=== PATIENT | male | born 1960 | race Caucasian/White ===

== ENCOUNTER 2024-12-18 05:39 | Inpatient (IN) | payer SELFPAY ==
--- OUTSIDE RECORDS SUMMARY | 2024-12-18 05:43 | XMS REPORT | Continuity of Care Document ---
Author Name Unknown Address [address] [facility] [address] [place] [address] [facility] Address [address] [facility] [address] [place] [address] Care Team Providers Care Speech Therapy Director Name Role Phone Sommer Whyte Primary Care Physician Medications Ordered Medication Name Filled Medication Name Start Date Stop Date Current Medication? Ordering Clinician Indication Dosage Frequency Signature (SIG) Comments Components Source albuterol sulfate HFA 90 mcg/actuati on aerosol inhaler 12-05 00:00: 00 Yes 12mcg/a ctuatio n Miguel Horta oseltamivir 75 mg capsule 12-05 00:00: 00 Yes 1mg Miguel Horta promethazin e-DM 6.25 mg-15 mg/5 mL oral syrup 12-05 00:00: 00 Yes 5mg/5 mL Miguel Horta carvedilol 25 mg tablet 2023-11 00:00: 00 Yes 1mg Miguel Horta lovastatin 20 mg tablet 2023-11 00:00: 00 Yes mg Miguel Horta amlodipine 10 mg tablet 2023-11 00:00: 00 Yes 1mg Miguel Horta lisinopril 40 mg tablet 2023-11 00:00: 00 Yes 1mg Miguel Horta lisinopril 40 mg tablet 07-19 00:00: 00 Yes 1mg Miguel Horta lovastatin 20 mg tablet 07-10 00:00: 00 Yes mg Miguel Horta lovastatin 20 mg tablet - 00:00: 00 Yes 1mg Miguel Horta lisinopril 40 mg tablet 04-11 00:00: 00 Yes 1mg Miguel Horta lovastatin 20 mg tablet -08 00:00: 00 Yes 1mg Miguel Horta lisinopril 40 mg tablet -08 00:00: 00 Yes 1mg Miguel Horta amlodipine 10 mg tablet -08 00:00: 00 Yes 1mg Miguel Horta carvedilol 25 mg tablet - 00:00: 00 Yes 1mg Miguel Horta amlodipine 10 mg tablet - 00:00: 00 Yes 1mg Miguel Horta carvedilol 25 mg tablet 02-06 00:00: 00 Yes 1mg Miguel Horta amlodipine 10 mg tablet 01-12 00:00: 00 Yes mg Miguel Horta carvedilol 25 mg tablet 01-11 00:00: 00 Yes mg Miguel Horta TAKE 1 TABLET BY MOUTH TWICE DAILY. 08 00:00: 00 Yes 25 Miguel Horta TAKE 1 TABLET BY MOUTH DAILY 08 00:00: 00 Yes 40 Miguel Horta TAKE 1 TABLET BY MOUTH DAILY 08 00:00: 00 Yes 20 Miguel Horta TAKE 1 TABLET BY MOUTH DAILY -08 00:00: 00 Yes 10 Miguel Horta TAKE 1 TABLET BY MOUTH DAILY 0 16 00:00: 00 03-21 00:00 :00 No 40 Miguel Horta TAKE 1 TABLET BY MOUTH TWICE DAILY. 16 00:00: 00 03-21 00:00 :00 No 25 Miguel Horta TAKE 1 TABLET BY MOUTH DAILY 0 16 00:00: 00 03-21 00:00 :00 No 20 Miguel Jennifer Horta TAKE 1 TABLET BY MOUTH DAILY 0 -16 00:00: 00 03-21 00:00 :00 No 10 Miguel Horta TAKE 1 TABLET BY MOUTH DAILY 0 - 00:00: 00 03-21 00:00 :00 No 10 Miguel Horta TAKE 1 TABLET BY MOUTH TWICE DAILY. 05-17 00:00: 00 03-21 00:00 :00 No 25 Miguel F Mychal TAKE 1 TABLET BY MOUTH DAILY 0 7-11 00:00: 00 03-21 00:00 :00 No 40 Miguel F Mychal TAKE 1 TABLET BY MOUTH DAILY 630 00:00: 00 03-21 00:00 :00 No 20 Miguel F Mychal TAKE 1 TABLET BY MOUTH DAILY 04-21 00:00: 00 03-21 00:00 :00 No 40 Miguel F Mychal TAKE 1 TABLET TWICE DAILY. 04-21 00:00: 00 03-21 00:00 :00 No 25 Miguel F Mychal TAKE 1 TABLET BY MOUTH DAILY 16 00:00: 00 03-21 00:00 :00 No 20 Miguel F Mychal TAKE 1 TABLET TWICE DAILY. 03-22 00:00: 00 03-21 00:00 :00 No 25 Miguel F Mychal TAKE 1 TABLET BY MOUTH DAILY 16 00:00: 00 03-21 00:00 :00 No 10 Miguel F Mychal TAKE 1 TABLET BY MOUTH DAILY 17 00:00: 00 03-21 00:00 :00 No 10 Miguel F Mychal TAKE 1 TABLET BY MOUTH DAILY 17 00:00: 00 03-21 00:00 :00 No 20 Miguel F Mychal TAKE 1 TABLET TWICE DAILY. 02-16 00:00: 00 03-21 00:00 :00 No 25 Miguel F Mychal Dose Unknown 11-19 00:00: 00 Yes Miguel F Mychal TAKE 1 TABLET BY MOUTH DAILY 11-19 00:00: 00 03-21 00:00 :00 No 10 Miguel F Mychal TAKE 1 TABLET TWICE DAILY. 11-19 00:00: 00 03-21 00:00 :00 No 25 Miguel F Mychal TAKE 1 TABLET BY MOUTH DAILY 11-19 00:00: 00 03-21 00:00 :00 No 20 Miguel F Mychal Dose Unknown 2021-11 0-17 00:00: 00 Yes Miguel Horta Dose Unknown 0 8-16 00:00: 00 Yes Miguel Horta carvedilol 25 mg tablet 0 8-11 00:00: 00 Yes 1mg Miguel Horta TAKE 1 TABLET BY MOUTH DAILY 0 8-11 00:00: 00 Yes 40 Miguel Horta TAKE 1 TABLET BY MOUTH DAILY 0 8-09 00:00: 00 Yes 40 Miguel Horta TAKE 1 TABLET BY MOUTH DAILY 0 8- 00:00: 00 Yes 10 Miguel Horta TAKE 1 TABLET BY MOUTH DAILY 0 8- 00:00: 00 Yes 20 Miguel Horta Dose Unknown 6-20 00:00: 00 Yes Miguel Horta lovastatin 20 mg tablet 0 6-20 00:00: 00 Yes 1mg Miguel Horta amlodipine 10 mg tablet 0 620 00:00: 00 Yes 1mg Miguel Horta carvedilol 25 mg tablet 0 6-20 00:00: 00 Yes 1mg Miguel Horta lisinopril 40 mg tablet 0 607 00:00: 00 Yes 1mg Miguel Horta amlodipine 10 mg tablet 0 6-07 00:00: 00 Yes 1mg Miguel Horta carvedilol 12.5 mg tablet 0 04-13 00:00: 00 Yes 1mg Miguel Horta lovastatin 20 mg tablet 0 6 00:00: 00 Yes 1mg Miguel Horta Dose Unknown 2020-11 2- 00:00: 00 Yes Miguel Horta amlodipine 10 mg tablet 2020-11 2- 00:00: 00 Yes 1mg Miguel Horta carvedilol 12.5 mg tablet 2020-11 00:00: 00 Yes 1mg Miguel Horta lovastatin 20 mg tablet 2020-11 00:00: 00 Yes 1mg Miguel Horta amlodipine 10 mg tablet 6- 00:00: 00 Yes 1mg Miguel Horta lisinopril 40 mg tablet 6- 00:00: 00 Yes 1mg Miguel Horta carvedilol 12.5 mg tablet 0 6-10 00:00: 00 Yes 1mg Miguel Horta lovastatin 20 mg tablet 0 6-10 00:00: 00 Yes 1mg Miguel Horta amlodipine 10 mg tablet 0 3-12 00:00: 00 Yes 1mg Miguel Horta Dose Unknown 0 3-12 00:00: 00 Yes Miguel Horta carvedilol 12.5 mg tablet 0 3-12 00:00: 00 Yes 1mg Miguel Horta lovastatin 20 mg tablet 0 3-12 00:00: 00 Yes 1mg Miguel Horta amlodipine 10 mg tablet 1 2-11 00:00: 00 Yes 1mg Miguel Horta lisinopril 40 mg tablet 1 2-11 00:00: 00 Yes 1mg Miguel Horta carvedilol 12.5 mg tablet 1 2-11 00:00: 00 Yes 1mg Miguel Horta lovastatin 20 mg tablet 1 2-11 00:00: 00 Yes 1mg Miguel Horta lisinopril 40 mg tablet 2019-0 9-14 00:00: 00 Yes 1mg Miguel Horta amlodipine 10 mg tablet 2019-0 9-14 00:00: 00 Yes 1mg Miguel Horta carvedilol 12.5 mg tablet 2019-0 9-14 00:00: 00 Yes 1mg Miguel Horta lovastatin 20 mg tablet 2019-0 9-14 00:00: 00 Yes 1mg Miguel Horta amlodipine 10 mg tablet 2019-0 6-12 00:00: 00 Yes 1mg Miguel Horta lisinopril 40 mg tablet 2019-0 6-12 00:00: 00 Yes 1mg Miguel Horta carvedilol 12.5 mg tablet 2019-0 6-12 00:00: 00 Yes 1mg Miguel Horta lovastatin 20 mg tablet 2019-0 6-12 00:00: 00 Yes 1mg Miguel Horta lisinopril 40 mg tablet 2019-0 3-18 00:00: 00 Yes 1mg Miguel Horta amlodipine 10 mg tablet 2019-0 3-18 00:00: 00 Yes 1mg Miguel Horta carvedilol 12.5 mg tablet 2019-0 3-18 00:00: 00 Yes 1mg Miguel Horta lovastatin 20 mg tablet 0 01-22 00:00: 00 Yes 1mg Miguel Horta lisinopril 40 mg tablet 01-06 00:00: 00 Yes 1mg Miguel Horta amlodipine 5 mg tablet 01-06 00:00: 00 Yes 1mg Miguel Horta carvedilol 12.5 mg tablet 01-06 00:00: 00 Yes 1mg Miguel Horta lovastatin 20 mg tablet 01-06 00:00: 00 Yes 1mg Miguel Horta lisinopril 40 mg tablet 2018-11 00:00: 00 Yes 1mg Miguel Horta amlodipine 5 mg tablet 2018-11 00:00: 00 Yes 1mg Miguel Horta carvedilol 12.5 mg tablet 2018-11 00:00: 00 Yes 1mg Miguel Horta lovastatin 20 mg tablet 2018-11 00:00: 00 Yes 1mg Miguel Horta amlodipine 5 mg tablet 07-13 00:00: 00 Yes 1mg Miguel Horta lisinopril 40 mg tablet 07-13 00:00: 00 Yes 1mg Miguel Horta carvedilol 12.5 mg tablet 07-13 00:00: 00 Yes 1mg Miguel Horta lovastatin 20 mg tablet 07-13 00:00: 00 Yes 1mg Miguel Horta amlodipine 5 mg tablet 07-12 00:00: 00 Yes 1mg Miguel Horta lisinopril 40 mg tablet 07-12 00:00: 00 Yes 1mg Miguel Horta carvedilol 12.5 mg tablet 07-12 00:00: 00 Yes 1mg Miguel Horta lovastatin 20 mg tablet 07-12 00:00: 00 Yes 1mg Miguel Horta lisinopril 40 mg tablet 06-11 00:00: 00 Yes 1mg Miguel Horta amlodipine 5 mg tablet 06-11 00:00: 00 Yes 1mg Miguel Horta carvedilol 12.5 mg tablet 06-11 00:00: 00 Yes 1mg Miguel Horta lovastatin 20 mg tablet 06-11 00:00: 00 Yes 1mg Miguel Horta lisinopril 40 mg tablet 05-28 00:00: 00 Yes 1mg Miguel Horta amlodipine 5 mg tablet 05-28 00:00: 00 Yes 1mg Miguel Horta carvedilol 12.5 mg tablet 05-28 00:00: 00 Yes 1mg Miguel Horta lovastatin 20 mg tablet 05-28 00:00: 00 Yes 1mg Miguel Horta amlodipine 5 mg tablet 02-22 00:00: 00 Yes 1mg Miguel Horta carvedilol 12.5 mg tablet 02-22 00:00: 00 Yes 1mg Miguel Horta lovastatin 20 mg tablet 02-22 00:00: 00 Yes 1mg Miguel Horta lisinopril 40 mg tablet 01-29 00:00: 00 Yes 1mg Miguel Horta amlodipine 5 mg tablet 01-29 00:00: 00 Yes 1mg Miguel Horta carvedilol 12.5 mg tablet 01-29 00:00: 00 Yes 1mg Miguel Horta lisinopril 40 mg tablet 07-11 00:00: 00 Yes 1mg Miguel Horta carvedilol 12.5 mg tablet 07-11 00:00: 00 Yes 1mg Miguel Horta lovastatin 20 mg tablet 07-11 00:00: 00 Yes 1mg Miguel Horta lisinopril 40 mg tablet 07-04 00:00: 00 Yes 1mg Miguel Horta carvedilol 12.5 mg tablet 07-04 00:00: 00 Yes 1mg Miguel Horta lovastatin 20 mg tablet 07-04 00:00: 00 Yes 1mg Miguel Horta carvedilol 12.5 mg tablet 04-04 00:00: 00 Yes 1mg Miguel Horta lisinopril 40 mg tablet 04-04 00:00: 00 Yes 1mg Miguel Horta lovastatin 20 mg tablet 04-04 00:00: 00 Yes 1mg Miguel Horta lovastatin 20 mg tablet 01-05 00:00: 00 Yes 1mg Miguel Horta lisinopril 20 mg tablet 12-28 00:00: 00 Yes 1mg Miguel Horta carvedilol 12.5 mg tablet 12-28 00:00: 00 Yes 1mg Miguel Horta lisinopril 20 mg tablet 2016-11 00:00: 00 Yes 1mg Miguel Horta carvedilol 12.5 mg tablet 12-08 00:00: 00 Yes 1mg Miguel Horta Immunizations Ordered Immunization Name Filled Immunization Name Date Status Comments Source Roopa COVID-19 Vaccine Roopa COVID-19 Vaccine 2021-09-15 00:00:00 Completed Miguel Horta Vital Signs Vital Name Observation Time Observation Value Comments S ourhemalatha BP Systolic 2024-12-05 11:04:00 116 mm[Hg] Step hen F Mychal BP Diastolic 2024-12-05 11:04:00 71 mm[Hg] [place] phen F Mychal Weight Measured 2024-12-05 11:04:00 120.60 pounds Miguel Jennifer Horta Height Measured 2024-12-05 11:04:00 64.00 inches Miguel Horta Body Temperature 2024-12-05 11:04:00 97.80 degrees Miguel Jennifer Horta Heart Rate 2024-12-05 11:04:00 60.00 /min Nanci en F Mychal Respiratory Rate 2024-12-05 11:04:00 18.00 /min Miguel F Mychal BP Systolic 2024-09-14 13:18:00 149 mm[Hg] Step hen F Mychal BP Diastolic 2024-09-14 13:18:00 72 mm[Hg] [place] phen F Mychal Weight Measured 2024-09-14 13:18:00 117.80 pounds Miguel F Mychal Height Measured 2024-09-14 13:18:00 64.00 inches Miguel F Mychal Body Temperature 2024-09-14 13:18:00 98.20 degrees Miguel F Mychal Heart Rate 2024-09-14 13:18:00 64.00 /min Nanci en F Mychal Respiratory Rate 2024-09-14 13:18:00 18.00 /min Miguel F Mychal BP Systolic 2024-03-14 14:49:00 113 mm[Hg] Step hen F Mychal BP Diastolic 2024-03-14 14:49:00 73 mm[Hg] [place] phen F Mychal Weight Measured 2024-03-14 14:49:00 118.80 pounds Miguel F Mychal Height Measured 2024-03-14 14:49:00 64.00 inches Miguel F Mychal Body Temperature 2024-03-14 14:49:00 98.10 degrees Miguel F Mychal Heart Rate 2024-03-14 14:49:00 59.00 /min Nanci en F Mychal Respiratory Rate 2024-03-14 14:49:00 19.00 /min Miguel F Mychal BP Systolic 2023-11-14 14:14:00 140 mm[Hg] Step hen F Mychal BP Diastolic 2023-11-14 14:14:00 77 mm[Hg] [place] phen F Mychal Weight Measured 2023-11-14 14:14:00 122.60 pounds Miguel F Mychal Height Measured 2023-11-14 14:14:00 64.00 inches Miguel F Mychal Body Temperature 2023-11-14 14:14:00 98.90 degrees Miguel F Mychal Heart Rate 2023-11-14 14:14:00 64.00 /min Nanci en F Mychal Respiratory Rate 2023-11-14 14:14:00 Miguel F Mychal BP Systolic 2023-10-17 14:30:00 135 mm[Hg] Step hen F Mychal BP Diastolic 2023-10-17 14:30:00 78 mm[Hg] [place] phen F Mychal Weight Measured 2023-10-17 14:30:00 122.40 pounds Miguel F Mychal Height Measured 2023-10-17 14:30:00 64.00 inches Miguel F Mychal Body Temperature 2023-10-17 14:30:00 Miguel F Mychal Heart Rate 2023-10-17 14:30:00 Nanci en F Mychal Respiratory Rate 2023-10-17 14:30:00 Miguel F Mychal BP Systolic 2023-06-22 13:55:00 145 mm[Hg] Step hen F Mychal BP Diastolic 2023-06-22 13:55:00 83 mm[Hg] [place] phen F Mychal Weight Measured 2023-06-22 13:55:00 121.20 pounds Miguel F Mychal Height Measured 2023-06-22 13:55:00 64.00 inches Miguel F Mychal Body Temperature 2023-06-22 13:55:00 98.20 degrees Miguel F Mychal Heart Rate 2023-06-22 13:55:00 68.00 /min Nanci en F Mychal Respiratory Rate 2023-06-22 13:55:00 18.00 /min Miguel F Mychal BP Systolic 2023-03-22 09:31:00 137 mm[Hg] Step hen F Mychal BP Diastolic 2023-03-22 09:31:00 88 mm[Hg] [place] phen F Mychal Weight Measured 2023-03-22 09:31:00 122.40 pounds Miguel F Mychal Height Measured 2023-03-22 09:31:00 64.00 inches Miguel F Mychal Body Temperature 2023-03-22 09:31:00 98.30 degrees Miguel F Mychal Heart Rate 2023-03-22 09:31:00 67.00 /min Nanci en F Mychal Respiratory Rate 2023-03-22 09:31:00 18.00 /min Miguel F Mychal BP Systolic 2022-11-19 10:59:00 164 mm[Hg] Step hen F Mychal BP Diastolic 2022-11-19 10:59:00 92 mm[Hg] [place] phen F Mychal Weight Measured 2022-11-19 10:59:00 122.80 pounds Miguel F Mychal Height Measured 2022-11-19 10:59:00 64.00 inches Miguel F Mychal Body Temperature 2022-11-19 10:59:00 98.20 degrees Miguel F Mychal Heart Rate 2022-11-19 10:59:00 112.00 /min Step hen F Mychal Respiratory Rate 2022-11-19 10:59:00 18.00 /min Miguel F Mychal BP Systolic 2022-08-25 15:35:00 144 mm[Hg] Step hen F Mychal BP Diastolic 2022-08-25 15:35:00 79 mm[Hg] [place] phen F Mychal Weight Measured 2022-08-25 15:35:00 125.00 pounds Miguel F Mychal Height Measured 2022-08-25 15:35:00 64.00 inches Miguel F Mychal Body Temperature 2022-08-25 15:35:00 98.20 degrees Miguel F Mychal Heart Rate 2022-08-25 15:35:00 58.00 /min Nanci en F Mychal Respiratory Rate 2022-08-25 15:35:00 18.00 /min Miguel F Mychal BP Systolic 2022-06-28 09:28:00 162 mm[Hg] Step hen F Mychal BP Diastolic 2022-06-28 09:28:00 83 mm[Hg] [place] phen F Mychal Weight Measured 2022-06-28 09:28:00 120.80 pounds Miguel F Mychal Height Measured 2022-06-28 09:28:00 64.00 inches Miguel F Mychal Body Temperature 2022-06-28 09:28:00 98.30 degrees Miguel F Mychal Heart Rate 2022-06-28 09:28:00 69.00 /min Nanci en F Mychal Respiratory Rate 2022-06-28 09:28:00 18.00 /min Miguel F Mychal BP Systolic 2022-04-26 09:03:00 153 mm[Hg] Step hen F Mychal BP Diastolic 2022-04-26 09:03:00 85 mm[Hg] [place] phen F Mychal Weight Measured 2022-04-26 09:03:00 121.40 pounds Miguel F Mychal Height Measured 2022-04-26 09:03:00 64.00 inches Miguel F Mychal Body Temperature 2022-04-26 09:03:00 97.80 degrees Miguel F Mychal Heart Rate 2022-04-26 09:03:00 67.00 /min Nanci en F Mychal Respiratory Rate 2022-04-26 09:03:00 16.00 /min Miguel F Mychal BP Systolic 2021-10-15 11:36:00 137 mm[Hg] Step hen F Mychal BP Diastolic 2021-10-15 11:36:00 80 mm[Hg] [place] phen F Mychal Weight Measured 2021-10-15 11:36:00 123.40 pounds Miguel F Mychal Height Measured 2021-10-15 11:36:00 64.00 inches Miguel F Mychal Body Temperature 2021-10-15 11:36:00 98.40 degrees Miguel F Mychal Heart Rate 2021-10-15 11:36:00 68.00 /min Nanci en F Mychal Respiratory Rate 2021-10-15 11:36:00 Miguel F Mychal Encounters Start Date/Time End Date/Time Encounter Type Admission Type Attending [facility] Care Department Encounter ID Source 2024-12-05 00:00:00 2024-12-05 00:00:00 Outpatient Visit SFA [id number] Miguel Horta 2024-09-14 13:08:22 2024-09-14 13:08:22 Outpatient SFA SFA [id number] Miguel Horta 2024-09-14 00:00:00 2024-09-14 00:00:00 Outpatient Visit SFA [id number] Miguel Horta 2024-03-14 14:38:45 2024-03-14 14:38:45 Outpatient SFA SFA [id number] Miguel Horta 2024-03-14 00:00:00 2024-03-14 00:00:00 Outpatient Visit SFA [id number] Miguel Horta 2023-11-14 14:12:08 2023-11-14 14:12:08 Outpatient SFA SFA [id number] Miguel Horta 2023-10-17 14:29:10 2023-10-17 14:29:10 Outpatient SFA SFA [id number] Miguel Horta 2023-06-22 13:48:28 2023-06-22 13:48:28 Outpatient SFA SFA [id number] Miguel Horta 2023-03-22 09:24:05 2023-03-22 09:24:05 Outpatient SFA SFA [id number] Miguel Horta 2022-11-29 14:55:21 2022-11-29 14:55:21 Outpatient SFA SFA [id number] Miguel Horta 2022-11-19 10:45:26 2022-11-19 10:45:26 Outpatient SFA SFA [id number] Miguel Horta 2022-08-25 15:26:44 2022-08-25 15:26:44 Outpatient [facility] [id number] Miguel Horta Results Test Description Test Time Test Comments Results Result Co mments Source LIPID [id number] 05:36:42* Test Item Value Reference Range Interpretation Comme nts CHOLESTEROL (test code = 2210) 209 MG/DL <200 H TRIGLYCERIDES (test code = 2232) 200 MG/DL <150 H HDL CHOLESTEROL (test code = 2220) 51 MG/DL >39 CALC LDL CHOL (test code = 2237) 126 MG/DL <100 H NOTE: CALCULATED LDL IS BASED ON BRANDIE-VALDEZ METHOD WHICHINCLUDES ADJUSTABLE TRIGLYCERIDE:VLDL CHOLESTEROL RATIO.THIS FACTOR VARIES BY MEASURED TRIGLYCERIDE AND NON-HDLCHOLESTEROL CONCENTRATIONS WITH INCREASED CALCULATED LDL SEENIN HIGHER TRIGLYCERIDE OR LOWER NON-HDL SPECIMENS. FOR MOREINFORMATION, SEE CLIENT ANNOUNCEMENT AT [email or web address] RISK RATIO LDL/HDL (test code = 2238) 2.47 RATIO <3.55 HEMOGLOBIN [id number] 03:37:43* Test Item Value Reference Range Interpretation Comme nts HEMOGLOBIN A1c (test code = 08535) 5.9 % 4.2-5.6 H [employer] [facility] [employer] GUIDELINES FOR HGB A1C: PREDIABETES/INCREASED RISK . . . . . . . 5.7-6.4% DIAGNOSIS OF DIABETES . . . . . . . . . >=6.5% WITH CONFIRMATION OR APPROPRIATE SYMPTOMS NOTE: ASSAY MAY BE AFFECTED BY HEMOGLOBINOPATHIES (SICKLE CELL ANEMIA, S-C DISEASE, OTHERS) OR ARTIFICIALLY LOWERED BY DECREASED RED CELL SURVIVAL (HEMOLYTIC ANEMIAS, BLOOD LOSS, ETC.). CONSIDER ALTERNATE TESTING OR LABORATORY CONSULTATION. UNLESS OTHERWISE INDICATED, ALL TESTING PERFORMED AT [facility] [address] [place] [id number] FACULTY HEAD: ARTHUR DOMINGUEZ M.D. CLIA NUMBER [id number] [facility] [place]. [id number] COMPREHENSIVE METABOLIC [id number] 00:00:00* Test Item Value Reference Range Interpretation Comme nts GLUCOSE (test code = 2217) 99 MG/DL BUN (test code = 2208) 14 MG/DL CREATININE (test code = 2214) 1.33 MG/DL eGFR (2020 CKD-EPI) (test co de = 74581) 60 ML/MIN/1.73 CALC BUN/CREAT (test code = 2235) 11 RATIO SODIUM (test code = 2231) 134 MEQ/L POTASSIUM (test code = 2228) 4.4 MEQ/L CHLORIDE (test code = 2215) 98 MEQ/L CARBON DIOXIDE (test code = 2206) 25 MEQ/L CALCIUM (test code = 2209) 9.6 MG/DL PROTEIN, TOTAL (test code = 2229) 8.5 G/DL ALBUMIN (test code = 2201) 4.6 G/DL CALC GLOBULIN (test code = 2240) 3.9 G/DL CALC A/G RATIO (test code = 2234) 1.2 RATIO BILIRUBIN, TOTAL (test code = 2207) 0.4 MG/DL ALKALINE PHOSPHATASE (test code = 2204) 48 U/L AST (test code = 2218) 17 U/L ALT (test code = 2219) 14 U/L Miguel HortaLIPID [id number] 00:00:00* Test Item Value Reference Range Interpretation Comme nts CHOLESTEROL (test code = 2210) 209 MG/DL TRIGLYCERIDES (test code = 2232) 200 MG/DL HDL CHOLESTEROL (test code = 2220) 51 MG/DL CALC LDL CHOL (test code = 2237) 126 MG/DL RISK RATIO LDL/HDL (test cod e = 2238) 2.47 RATIO Miguel HortaHEMOGLOBIN [id number] 00:00:00* Test Item Value Reference Range Interpretation Comme nts HEMOGLOBIN A1c (test code = 20056) 5.9 % Miguel HortaCOMPREHENSIVE METABOLIC [id number] 00:00:00* Test Item Value Reference Range Interpretation Comme nts GLUCOSE (test code = 2217) 99 MG/DL BUN (test code = 2208) 14 MG/DL CREATININE (test code = 2214) 1.33 MG/DL eGFR (2020 CKD-EPI) (test co de = 06198) 60 ML/MIN/1.73 CALC BUN/CREAT (test code = 2235) 11 RATIO SODIUM (test code = 2231) 134 MEQ/L POTASSIUM (test code = 2228) 4.4 MEQ/L CHLORIDE (test code = 2215) 98 MEQ/L CARBON DIOXIDE (test code = 2206) 25 MEQ/L CALCIUM (test code = 2209) 9.6 MG/DL PROTEIN, TOTAL (test code = 2229) 8.5 G/DL ALBUMIN (test code = 2201) 4.6 G/DL CALC GLOBULIN (test code = 2240) 3.9 G/DL CALC A/G RATIO (test code = 2234) 1.2 RATIO BILIRUBIN, TOTAL (test code = 2207) 0.4 MG/DL ALKALINE PHOSPHATASE (test code = 2204) 48 U/L AST (test code = 2218) 17 U/L ALT (test code = 2219) 14 U/L Miguel HortaLIPID [id number] 00:00:00* Test Item Value Reference Range Interpretation Comme nts CHOLESTEROL (test code = 2210) 209 MG/DL TRIGLYCERIDES (test code = 2232) 200 MG/DL HDL CHOLESTEROL (test code = 2220) 51 MG/DL CALC LDL CHOL (test code = 2237) 126 MG/DL RISK RATIO LDL/HDL (test cod e = 2238) 2.47 RATIO Miguel Rodriguez AustinHEMOGLOBIN [id number] 00:00:00* Test Item Value Reference Range Interpretation Comme nts HEMOGLOBIN A1c (test code = 62689) 5.9 % Miguel Rodriguez AustinHEMOGLOBIN [id number] 00:00:00* Test Item Value Reference Range Interpretation Comme nts HEMOGLOBIN A1c (test code = 56666) 6.0 % Miguel Rodriguez AustinHEMOGLOBIN [id number] 00:00:00* Test Item Value Reference Range Interpretation Comme nts HEMOGLOBIN A1c (test code = 36316) 6.0 % Miguel Rodriguez AustinHEMOGLOBIN [id number] 00:00:00* Test Item Value Reference Range Interpretation Comme nts HEMOGLOBIN A1c (test code = 26510) 5.9 % Miguel Rodriguez AustinHEMOGLOBIN [id number] 00:00:00* Test Item Value Reference Range Interpretation Comme nts HEMOGLOBIN A1c (test code = 41048) 5.9 % Miguel Rodriguez AustinHEMOGLOBIN [id number] 00:00:00* Test Item Value Reference Range Interpretation Comme nts HEMOGLOBIN A1c (test code = 54652) 5.9 % Miguel Rodriguez AustinOCCULT BLD,FECAL,IMMUNOASSAY [id number] 11:55:54* Test Item Value Reference Range Interpretation Comme nts OCCULT BLD, FECAL (test code = 20443) NEGATIVE NEGATIVE UNLESS OTHER VILLAGOMEZ INDICATED, ALL TESTING PERFORMED AT [facility] [address] [place] [id number] FACULTY HEAD: ARTHUR DOMINGUEZ M.D. CLIA NUMBER [id number] [facility] [place]. [id number] OCCULT BLD,FECAL,IMMUNOASSAY [id number] 00:00:00* Test Item Value Reference Range Interpretation Comme nts OCCULT BLD, FECAL (test code = 13412) NEGATIVE Miguel F AustinOCCULT BLD,FECAL,IMMUNOASSAY [id number] 00:00:00* Test Item Value Reference Range Interpretation Comme nts OCCULT BLD, FECAL (test code = 67339) NEGATIVE Miguel F AustinOCCULT BLD,FECAL,IMMUNOASSAY [id number] 00:00:00* Test Item Value Reference Range Interpretation Comme nts OCCULT BLD, FECAL (test code = 87990) NEGATIVE Miguel F AustinCOMPREHENSIVE METABOLIC [id number] 03:42:12* Test Item Value Reference Range Interpretation Comme nts GLUCOSE (test code = 7) 111 MG/DL 70-99 H BUN (test code = 2207) 9 MG/DL 8-23 CREATININE (test code = 2214) 0.82 MG/DL 0.80-1.40 eGFR (2020 CKD-EPI) (test code = 32118) 100 ML/MIN/1.73 >60 CALC BUN/CREAT (test code = 223) 11 RATIO 6-28 SODIUM (test code = 223) 138 MEQ/L 133-146 POTASSIUM (test code = 2228) 4.0 MEQ/L 3.5-5.4 CHLORIDE (test code = 2215) 100 MEQ/L 95-107 CARBON DIOXIDE (test code = 2206) 26 MEQ/L 19-31 CALCIUM (test code = 2209) 10.2 MG/DL 8.5-10.5 PROTEIN, TOTAL (test code = 2229) 8.6 G/DL 6.1-8.3 H ALBUMIN (test code = 2201) 5.2 G/DL 3.5-5.2 CALC GLOBULIN (test code = 2240) 3.4 G/DL 1.9-3.7 CALC A/G RATIO (test code = 2234) 1.5 RATIO 1.0-2.6 BILIRUBIN, TOTAL (test code = 2207) 0.4 MG/DL See_Comment [Automated me ssage] The system which generated this result transmitted reference range: <=1.2. The reference range was not used to interpret this result as normal/abnormal. ALKALINE PHOSPHATASE (test code = 2204) 57 U/L 40-123 AST (test code = 2218) 21 U/L 9-50 ALT (test code = 2219) 17 U/L 5-50 LIPID [id number] 03:42:12* Test Item Value Reference Range Interpretation Comme nts CHOLESTEROL (test code = 2210) 166 MG/DL <200 TRIGLYCERIDES (test code = 2232) 113 MG/DL <150 HDL CHOLESTEROL (test code = 2220) 64 MG/DL >39 CALC LDL CHOL (test code = 2237) 81 MG/DL <100 NOTE: CALCULATED LDL IS BASED ON BRANDIE-VALDEZ METHOD WHICHINCLUDES ADJUSTABLE TRIGLYCERIDE:VLDL CHOLESTEROL RATIO.THIS FACTOR VARIES BY MEASURED TRIGLYCERIDE AND NON-HDLCHOLESTEROL CONCENTRATIONS WITH INCREASED CALCULATED LDL SEENIN HIGHER TRIGLYCERIDE OR LOWER NON-HDL SPECIMENS. FOR MOREINFORMATION, SEE CLIENT ANNOUNCEMENT AT [email or web address] RATIO LDL/HDL (test code = 2238) 1.27 RATIO <3.55 UNLESS OTHERW ISE INDICATED, ALL TESTING [facility]FORMED [facility] [address] [place] [address] FACULTY HEAD: YFN HINOJOSA M.D. CLIA NUMBER [id number] [facility] [place]. [id number] COMPREHENSIVE METABOLIC [id number] 00:00:00* Test Item Value Reference Range Interpretation Comme nts GLUCOSE (test code = 2217) 111 MG/DL BUN (test code = 2208) 9 MG/DL CREATININE (test code = 2214) 0.82 MG/DL eGFR (2020 CKD-EPI) (test code = 16915) 100 ML/MIN/1.73 CALC BUN/CREAT (test code = 2235) 11 RATIO SODIUM (test code = 2231) 138 MEQ/L POTASSIUM (test code = 2228) 4.0 MEQ/L CHLORIDE (test code = 2215) 100 MEQ/L CARBON DIOXIDE (test code = 2206) 26 MEQ/L CALCIUM (test code = 2209) 10.2 MG/DL PROTEIN, TOTAL (test code = 2229) 8.6 G/DL ALBUMIN (test code = 2201) 5.2 G/DL CALC GLOBULIN (test code = 2240) 3.4 G/DL CALC A/G RATIO (test code = 2234) 1.5 RATIO BILIRUBIN, TOTAL (test code = 2207) 0.4 MG/DL ALKALINE PHOSPHATASE (test code = 2204) 57 U/L AST (test code = 2218) 21 U/L ALT (test code = 2219) 17 U/L Miguel HortaLIPID [id number] 00:00:00* Test Item Value Reference Range Interpretation Comme nts CHOLESTEROL (test code = 2210) 166 MG/DL TRIGLYCERIDES (test code = 2232) 113 MG/DL HDL CHOLESTEROL (test code = 2220) 64 MG/DL CALC LDL CHOL (test code = 2237) 81 MG/DL RISK RATIO LDL/HDL (test cod e = 2238) 1.27 RATIO Miguel HortaCOMPREHENSIVE METABOLIC [id number] 00:00:00* Test Item Value Reference Range Interpretation Comme nts GLUCOSE (test code = 2217) 111 MG/DL BUN (test code = 2208) 9 MG/DL CREATININE (test code = 2214) 0.82 MG/DL eGFR (2020 CKD-EPI) (test code = 89020) 100 ML/MIN/1.73 CALC BUN/CREAT (test code = 2235) 11 RATIO SODIUM (test code = 2231) 138 MEQ/L POTASSIUM (test code = 2228) 4.0 MEQ/L CHLORIDE (test code = 2215) 100 MEQ/L CARBON DIOXIDE (test code = 2206) 26 MEQ/L CALCIUM (test code = 2209) 10.2 MG/DL PROTEIN, TOTAL (test code = 2229) 8.6 G/DL ALBUMIN (test code = 2201) 5.2 G/DL CALC GLOBULIN (test code = 2240) 3.4 G/DL CALC A/G RATIO (test code = 2234) 1.5 RATIO BILIRUBIN, TOTAL (test code = 2207) 0.4 MG/DL ALKALINE PHOSPHATASE (test code = 2204) 57 U/L AST (test code = 2218) 21 U/L ALT (test code = 2219) 17 U/L Miguel HortaLIPID [id number] 00:00:00* Test Item Value Reference Range Interpretation Comme nts CHOLESTEROL (test code = 2210) 166 MG/DL TRIGLYCERIDES (test code = 2232) 113 MG/DL HDL CHOLESTEROL (test code = 2220) 64 MG/DL CALC LDL CHOL (test code = 2237) 81 MG/DL RISK RATIO LDL/HDL (test cod e = 2238) 1.27 RATIO Miguel HortaCOMPREHENSIVE METABOLIC [id number] 00:00:00* Test Item Value Reference Range Interpretation Comme nts GLUCOSE (test code = 2217) 111 MG/DL BUN (test code = 2208) 9 MG/DL CREATININE (test code = 2214) 0.82 MG/DL eGFR (2020 CKD-EPI) (test code = 88649) 100 ML/MIN/1.73 CALC BUN/CREAT (test code = 2235) 11 RATIO SODIUM (test code = 2231) 138 MEQ/L POTASSIUM (test code = 2228) 4.0 MEQ/L CHLORIDE (test code = 2215) 100 MEQ/L CARBON DIOXIDE (test code = 2206) 26 MEQ/L CALCIUM (test code = 2209) 10.2 MG/DL PROTEIN, TOTAL (test code = 2229) 8.6 G/DL ALBUMIN (test code = 2201) 5.2 G/DL CALC GLOBULIN (test code = 2240) 3.4 G/DL CALC A/G RATIO (test code = 2234) 1.5 RATIO BILIRUBIN, TOTAL (test code = 2207) 0.4 MG/DL ALKALINE PHOSPHATASE (test code = 2204) 57 U/L AST (test code = 2218) 21 U/L ALT (test code = 2219) 17 U/L Miguel HortaLIPID [id number] 00:00:00* Test Item Value Reference Range Interpretation Comme nts CHOLESTEROL (test code = 2210) 166 MG/DL TRIGLYCERIDES (test code = 2232) 113 MG/DL HDL CHOLESTEROL (test code = 2220) 64 MG/DL CALC LDL CHOL (test code = 2237) 81 MG/DL RISK RATIO LDL/HDL (test cod e = 2238) 1.27 RATIO Miguel AlmeidaULT BLD,FECAL,IMMUNOASSAY [id number] 00:00:00* Test Item Value Reference Range Interpretation Comme nts OCCULT BLD, FECAL (test code = 61611) NEGATIVE Miguel F AustinOCCULT BLD,FECAL,IMMUNOASSAY [id number] 00:00:00* Test Item Value Reference Range Interpretation Comme nts OCCULT BLD, FECAL (test code = 87190) NEGATIVE Miguel F AustinOCCULT BLD,FECAL,IMMUNOASSAY [id number] 00:00:00* Test Item Value Reference Range Interpretation Comme nts OCCULT BLD, FECAL (test code = 72640) NEGATIVE Miguel HortaHEMOGLOBIN [id number] 22:33:18* Test Item Value Reference Range Interpretation Comme nts HEMOGLOBIN A1c (test code = 23341) 5.8 % 4.2-5.6 H COMPREHENSIVE METABOLIC [id number] 04:07:54* Test Item Value Reference Range Interpretation Comme nts GLUCOSE (test code = 2216) 120 MG/DL 70-99 H BUN (test code = 2207) 11 MG/DL 8-23 CREATININE (test code = 2213) 0.81 MG/DL 0.80-1.40 eGFR (2020 CKD-EPI) (test code = 89293) 101 ML/MIN/1.73 >60 CALC BUN/CREAT (test code = 5) 14 RATIO 6-28 SODIUM (test code = 223) 135 MEQ/L 133-146 POTASSIUM (test code = 2228) 4.2 MEQ/L 3.5-5.4 CHLORIDE (test code = 2215) 96 MEQ/L 95-107 CARBON DIOXIDE (test code = 2206) 25 MEQ/L 19-31 CALCIUM (test code = 2209) 10.3 MG/DL 8.5-10.5 PROTEIN, TOTAL (test code = 222) 8.2 G/DL 6.1-8.3 ALBUMIN (test code = 1) 5.2 G/DL 3.5-5.2 CALC GLOBULIN (test code = 2240) 3.0 G/DL 1.9-3.7 CALC A/G RATIO (test code = 2234) 1.7 RATIO 1.0-2.6 BILIRUBIN, TOTAL (test code = 2206) 0.5 MG/DL See_Comment [Automated me ssage] The system which generated this result transmitted reference range: <=1.2. The reference range was not used to interpret this result as normal/abnormal. ALKALINE PHOSPHATASE (test code = 2204) 53 U/L 40-123 AST (test code = 2218) 20 U/L 9-50 ALT (test code = 2219) 19 U/L 5-50 UNLESS OTHERWISE INDICATED, ALL TESTING PERFORMED [facility] [employer] [address] [place] [id number] FACULTY HEAD: YFN HINOJOSA M.D. IA NUMBER [id number] [facility] [place]. [id number] LIPID [id number] 04:07:54* Test Item Value Reference Range Interpretation Comme nts CHOLESTEROL (test code = 2210) 174 MG/DL <200 TRIGLYCERIDES (test code = 2232) 94 MG/DL <150 HDL CHOLESTEROL (test code = 2220) 65 MG/DL >39 CALC LDL CHOL (test code = 2237) 90 MG/DL <100 NOTE: CALCULATED LDL IS BASED ON BRANDIE-VALDEZ METHOD WHICHINCLUDES ADJUSTABLE TRIGLYCERIDE:VLDL CHOLESTEROL RATIO.THIS FACTOR VARIES BY MEASURED TRIGLYCERIDE AND NON-HDLCHOLESTEROL CONCENTRATIONS WITH INCREASED CALCULATED LDL SEENIN HIGHER TRIGLYCERIDE OR LOWER NON-HDL SPECIMENS. FOR MOREINFORMATION, SEE CLIENT ANNOUNCEMENT AT [email or web address] RISK RATIO LDL/HDL (test code = 2238) 1.38 RATIO <3.55 LIPID [id number] 00:00:00* Test Item Value Reference Range Interpretation Comme nts CHOLESTEROL (test code = 2210) 174 MG/DL TRIGLYCERIDES (test code = 2232) 94 MG/DL HDL CHOLESTEROL (test code = 2220) 65 MG/DL CALC LDL CHOL (test code = 2237) 90 MG/DL RISK RATIO LDL/HDL (test cod e = 2238) 1.38 RATIO Miguel HortaHEMOGLOBIN [id number] 00:00:00* Test Item Value Reference Range Interpretation Comme nts HEMOGLOBIN A1c (test code = 78608) 5.8 % Miguel Rodriguez AustinCOMPREHENSIVE METABOLIC [id number] 00:00:00* Test Item Value Reference Range Interpretation Comme nts GLUCOSE (test code = 2217) 120 MG/DL BUN (test code = 2208) 11 MG/DL CREATININE (test code = 2214) 0.81 MG/DL eGFR (2020 CKD-EPI) (test code = 06347) 101 ML/MIN/1.73 CALC BUN/CREAT (test code = 2235) 14 RATIO SODIUM (test code = 2231) 135 MEQ/L POTASSIUM (test code = 2228) 4.2 MEQ/L CHLORIDE (test code = 2215) 96 MEQ/L CARBON DIOXIDE (test code = 2206) 25 MEQ/L CALCIUM (test code = 2209) 10.3 MG/DL PROTEIN, TOTAL (test code = 2229) 8.2 G/DL ALBUMIN (test code = 2201) 5.2 G/DL CALC GLOBULIN (test code = 2240) 3.0 G/DL CALC A/G RATIO (test code = 2234) 1.7 RATIO BILIRUBIN, TOTAL (test code = 2207) 0.5 MG/DL ALKALINE PHOSPHATASE (test code = 2204) 53 U/L AST (test code = 2218) 20 U/L ALT (test code = 2219) 19 U/L Miguel Rodriguez RydeLIPID [id number] 00:00:00* Test Item Value Reference Range Interpretation Comme nts CHOLESTEROL (test code = 2210) 174 MG/DL TRIGLYCERIDES (test code = 2232) 94 MG/DL HDL CHOLESTEROL (test code = 2220) 65 MG/DL CALC LDL CHOL (test code = 2237) 90 MG/DL RISK RATIO LDL/HDL (test cod e = 2238) 1.38 RATIO Miguel HortaHEMOGLOBIN [id number] 00:00:00* Test Item Value Reference Range Interpretation Comme nts HEMOGLOBIN A1c (test code = 64377) 5.8 % Miguel Rodriguez RydeCOMPREHENSIVE METABOLIC [id number] 00:00:00* Test Item Value Reference Range Interpretation Comme nts GLUCOSE (test code = 2217) 120 MG/DL BUN (test code = 2208) 11 MG/DL CREATININE (test code = 2214) 0.81 MG/DL eGFR (2020 CKD-EPI) (test code = 66757) 101 ML/MIN/1.73 CALC BUN/CREAT (test code = 2235) 14 RATIO SODIUM (test code = 2231) 135 MEQ/L POTASSIUM (test code = 2228) 4.2 MEQ/L CHLORIDE (test code = 2215) 96 MEQ/L CARBON DIOXIDE (test code = 2206) 25 MEQ/L CALCIUM (test code = 2209) 10.3 MG/DL PROTEIN, TOTAL (test code = 2229) 8.2 G/DL ALBUMIN (test code = 2201) 5.2 G/DL CALC GLOBULIN (test code = 2240) 3.0 G/DL CALC A/G RATIO (test code = 2234) 1.7 RATIO BILIRUBIN, TOTAL (test code = 2207) 0.5 MG/DL ALKALINE PHOSPHATASE (test code = 2204) 53 U/L AST (test code = 2218) 20 U/L ALT (test code = 2219) 19 U/L Miguel HortaLIPID [id number] 00:00:00* Test Item Value Reference Range Interpretation Comme nts CHOLESTEROL (test code = 2210) 174 MG/DL TRIGLYCERIDES (test code = 2232) 94 MG/DL HDL CHOLESTEROL (test code = 2220) 65 MG/DL CALC LDL CHOL (test code = 2237) 90 MG/DL RISK RATIO LDL/HDL (test cod e = 2238) 1.38 RATIO Miguel HortaHEMOGLOBIN [id number] 00:00:00* Test Item Value Reference Range Interpretation Comme nts HEMOGLOBIN A1c (test code = 51169) 5.8 % Miguel HortaCOMPREHENSIVE METABOLIC [id number] 00:00:00* Test Item Value Reference Range Interpretation Comme nts GLUCOSE (test code = 2217) 120 MG/DL BUN (test code = 2208) 11 MG/DL CREATININE (test code = 2214) 0.81 MG/DL eGFR (2020 CKD-EPI) (test code = 41996) 101 ML/MIN/1.73 CALC BUN/CREAT (test code = 2235) 14 RATIO SODIUM (test code = 2231) 135 MEQ/L POTASSIUM (test code = 2228) 4.2 MEQ/L CHLORIDE (test code = 2215) 96 MEQ/L CARBON DIOXIDE (test code = 2206) 25 MEQ/L CALCIUM (test code = 2209) 10.3 MG/DL PROTEIN, TOTAL (test code = 2229) 8.2 G/DL ALBUMIN (test code = 2201) 5.2 G/DL CALC GLOBULIN (test code = 2240) 3.0 G/DL CALC A/G RATIO (test code = 2234) 1.7 RATIO BILIRUBIN, TOTAL (test code = 2207) 0.5 MG/DL ALKALINE PHOSPHATASE (test code = 2204) 53 U/L AST (test code = 2218) 20 U/L ALT (test code = 2219) 19 U/L Miguel HortaHEMOGLOBIN [id number] 00:00:00* Test Item Value Reference Range Interpretation Comme nts HEMOGLOBIN A1c (test code = 92025) 5.7 % Miguel HortaLIPID [id number] 00:00:00* Test Item Value Reference Range Interpretation Comme nts CHOLESTEROL (test code = 2210) 178 MG/DL TRIGLYCERIDES (test code = 2232) 72 MG/DL HDL CHOLESTEROL (test code = 2220) 66 MG/DL CALC LDL CHOL (test code = 2237) 96 MG/DL RISK RATIO LDL/HDL (test cod e = 2238) 1.45 RATIO Miguel HortaCOMPREHENSIVE METABOLIC [id number] 00:00:00* Test Item Value Reference Range Interpretation Comme nts GLUCOSE (test code = 2217) 105 MG/DL BUN (test code = 2208) 14 MG/DL CREATININE (test code = 2214) 0.86 MG/DL eGFR AMER. (test cod e = 86168) 110 ML/MIN/1.73 eGFR NON- AMER. (test code = 34556) 95 ML/MIN/1.73 CALC BUN/CREAT (test code = 2235) 16 RATIO SODIUM (test code = 2231) 134 MEQ/L POTASSIUM (test code = 2228) 3.9 MEQ/L CHLORIDE (test code = 2215) 97 MEQ/L CARBON DIOXIDE (test code = 2206) 25 MEQ/L CALCIUM (test code = 2209) 10.0 MG/DL PROTEIN, TOTAL (test code = 2229) 8.1 G/DL ALBUMIN (test code = 2201) 5.1 G/DL CALC GLOBULIN (test code = 2240) 3.0 G/DL CALC A/G RATIO (test code = 2234) 1.7 RATIO BILIRUBIN, TOTAL (test code = 2207) 0.6 MG/DL ALKALINE PHOSPHATASE (test code = 2204) 51 U/L AST (test code = 2218) 20 U/L ALT (test code = 2219) 15 U/L Miguel HortaHEMOGLOBIN [id number] 00:00:00* Test Item Value Reference Range Interpretation Comme nts HEMOGLOBIN A1c (test code = 50380) 5.7 % Miguel HortaLIPID [id number] 00:00:00* Test Item Value Reference Range Interpretation Comme nts CHOLESTEROL (test code = 2210) 178 MG/DL TRIGLYCERIDES (test code = 2232) 72 MG/DL HDL CHOLESTEROL (test code = 2220) 66 MG/DL CALC LDL CHOL (test code = 2237) 96 MG/DL RISK RATIO LDL/HDL (test cod e = 2238) 1.45 RATIO Miguel HortaCOMPREHENSIVE METABOLIC [id number] 00:00:00* Test Item Value Reference Range Interpretation Comme nts GLUCOSE (test code = 2217) 105 MG/DL BUN (test code = 2208) 14 MG/DL CREATININE (test code = 2214) 0.86 MG/DL eGFR AMER. (test cod e = 33973) 110 ML/MIN/1.73 eGFR NON- AMER. (test code = 80090) 95 ML/MIN/1.73 CALC BUN/CREAT (test code = 2235) 16 RATIO SODIUM (test code = 2231) 134 MEQ/L POTASSIUM (test code = 2228) 3.9 MEQ/L CHLORIDE (test code = 2215) 97 MEQ/L CARBON DIOXIDE (test code = 2206) 25 MEQ/L CALCIUM (test code = 2209) 10.0 MG/DL PROTEIN, TOTAL (test code = 2229) 8.1 G/DL ALBUMIN (test code = 2201) 5.1 G/DL CALC GLOBULIN (test code = 2240) 3.0 G/DL CALC A/G RATIO (test code = 2234) 1.7 RATIO BILIRUBIN, TOTAL (test code = 2207) 0.6 MG/DL ALKALINE PHOSPHATASE (test code = 2204) 51 U/L AST (test code = 2218) 20 U/L ALT (test code = 2219) 15 U/L Miguel HortaHEMOGLOBIN [id number] 00:00:00* Test Item Value Reference Range Interpretation Comme nts HEMOGLOBIN A1c (test code = 07938) 5.7 % Miguel HortaLIPID [id number] 00:00:00* Test Item Value Reference Range Interpretation Comme nts CHOLESTEROL (test code = 2210) 178 MG/DL TRIGLYCERIDES (test code = 2232) 72 MG/DL HDL CHOLESTEROL (test code = 2220) 66 MG/DL CALC LDL CHOL (test code = 2237) 96 MG/DL RISK RATIO LDL/HDL (test cod e = 2238) 1.45 RATIO Miguel Rodriguez AustinCOMPREHENSIVE METABOLIC [id number] 00:00:00* Test Item Value Reference Range Interpretation Comme nts GLUCOSE (test code = 2217) 105 MG/DL BUN (test code = 2208) 14 MG/DL CREATININE (test code = 2214) 0.86 MG/DL eGFR AMER. (test cod e = 72673) 110 ML/MIN/1.73 eGFR NON- AMER. (test code = 07022) 95 ML/MIN/1.73 CALC BUN/CREAT (test code = 2235) 16 RATIO SODIUM (test code = 2231) 134 MEQ/L POTASSIUM (test code = 2228) 3.9 MEQ/L CHLORIDE (test code = 2215) 97 MEQ/L CARBON DIOXIDE (test code = 2206) 25 MEQ/L CALCIUM (test code = 2209) 10.0 MG/DL PROTEIN, TOTAL (test code = 2229) 8.1 G/DL ALBUMIN (test code = 2201) 5.1 G/DL CALC GLOBULIN (test code = 2240) 3.0 G/DL CALC A/G RATIO (test code = 2234) 1.7 RATIO BILIRUBIN, TOTAL (test code = 2207) 0.6 MG/DL ALKALINE PHOSPHATASE (test code = 2204) 51 U/L AST (test code = 2218) 20 U/L ALT (test code = 2219) 15 U/L Miguel HortaLIPID [id number] 00:00:00* Test Item Value Reference Range Interpretation Comme nts CHOLESTEROL (test code = 2210) 159 MG/DL TRIGLYCERIDES (test code = 2232) 78 MG/DL HDL CHOLESTEROL (test code = 2220) 55 MG/DL CALC LDL CHOL (test code = 2237) 87 MG/DL RISK RATIO LDL/HDL (test cod e = 2238) 1.58 RATIO Miguel F AustinCOMPREHENSIVE METABOLIC [id number] 00:00:00* Test Item Value Reference Range Interpretation Comme nts GLUCOSE (test code = 2217) 104 MG/DL BUN (test code = 2208) 11 MG/DL CREATININE (test code = 2214) 0.79 MG/DL eGFR AMER. (test cod e = 07368) 114 ML/MIN/1.73 eGFR NON- AMER. (test code = 59245) 98 ML/MIN/1.73 CALC BUN/CREAT (test code = 2235) 14 RATIO SODIUM (test code = 2231) 139 MEQ/L POTASSIUM (test code = 2228) 4.0 MEQ/L CHLORIDE (test code = 2215) 99 MEQ/L CARBON DIOXIDE (test code = 2206) 27 MEQ/L CALCIUM (test code = 2209) 9.7 MG/DL PROTEIN, TOTAL (test code = 2229) 8.1 G/DL ALBUMIN (test code = 2201) 5.1 G/DL CALC GLOBULIN (test code = 2240) 3.0 G/DL CALC A/G RATIO (test code = 2234) 1.7 RATIO BILIRUBIN, TOTAL (test code = 2207) 0.4 MG/DL ALKALINE PHOSPHATASE (test code = 2204) 55 U/L AST (test code = 2218) 16 U/L ALT (test code = 2219) 18 U/L Miguel Rodriguez AustinLIPID [id number] 00:00:00* Test Item Value Reference Range Interpretation Comme nts CHOLESTEROL (test code = 2210) 159 MG/DL TRIGLYCERIDES (test code = 2232) 78 MG/DL HDL CHOLESTEROL (test code = 2220) 55 MG/DL CALC LDL CHOL (test code = 2237) 87 MG/DL RISK RATIO LDL/HDL (test cod e = 2238) 1.58 RATIO Miguel Rodriguez AustinCOMPREHENSIVE METABOLIC [id number] 00:00:00* Test Item Value Reference Range Interpretation Comme nts GLUCOSE (test code = 2217) 104 MG/DL BUN (test code = 2208) 11 MG/DL CREATININE (test code = 2214) 0.79 MG/DL eGFR AMER. (test cod e = 55301) 114 ML/MIN/1.73 eGFR NON- AMER. (test code = 17600) 98 ML/MIN/1.73 CALC BUN/CREAT (test code = 2235) 14 RATIO SODIUM (test code = 2231) 139 MEQ/L POTASSIUM (test code = 2228) 4.0 MEQ/L CHLORIDE (test code = 2215) 99 MEQ/L CARBON DIOXIDE (test code = 2206) 27 MEQ/L CALCIUM (test code = 2209) 9.7 MG/DL PROTEIN, TOTAL (test code = 2229) 8.1 G/DL ALBUMIN (test code = 2201) 5.1 G/DL CALC GLOBULIN (test code = 2240) 3.0 G/DL CALC A/G RATIO (test code = 2234) 1.7 RATIO BILIRUBIN, TOTAL (test code = 2207) 0.4 MG/DL ALKALINE PHOSPHATASE (test code = 2204) 55 U/L AST (test code = 2218) 16 U/L ALT (test code = 2219) 18 U/L Miguel Rodriguez RydeLIPID [id number] 00:00:00* Test Item Value Reference Range Interpretation Comme nts CHOLESTEROL (test code = 2210) 159 MG/DL TRIGLYCERIDES (test code = 2232) 78 MG/DL HDL CHOLESTEROL (test code = 2220) 55 MG/DL CALC LDL CHOL (test code = 2237) 87 MG/DL RISK RATIO LDL/HDL (test cod e = 2238) 1.58 RATIO Miguel HortaCOMPREHENSIVE METABOLIC [id number] 00:00:00* Test Item Value Reference Range Interpretation Comme nts GLUCOSE (test code = 2217) 104 MG/DL BUN (test code = 2208) 11 MG/DL CREATININE (test code = 2214) 0.79 MG/DL eGFR AMER. (test cod e = 27454) 114 ML/MIN/1.73 eGFR NON- AMER. (test code = 19473) 98 ML/MIN/1.73 CALC BUN/CREAT (test code = 2235) 14 RATIO SODIUM (test code = 2231) 139 MEQ/L POTASSIUM (test code = 2228) 4.0 MEQ/L CHLORIDE (test code = 2215) 99 MEQ/L CARBON DIOXIDE (test code = 2206) 27 MEQ/L CALCIUM (test code = 2209) 9.7 MG/DL PROTEIN, TOTAL (test code = 2229) 8.1 G/DL ALBUMIN (test code = 2201) 5.1 G/DL CALC GLOBULIN (test code = 2240) 3.0 G/DL CALC A/G RATIO (test code = 2234) 1.7 RATIO BILIRUBIN, TOTAL (test code = 2207) 0.4 MG/DL ALKALINE PHOSPHATASE (test code = 2204) 55 U/L AST (test code = 2218) 16 U/L ALT (test code = 2219) 18 U/L Miguel HortaCOMPREHENSIVE METABOLIC [id number] 00:00:00* Test Item Value Reference Range Interpretation Comme nts GLUCOSE (test code = 2217) 92 MG/DL BUN (test code = 2208) 5 MG/DL CREATININE (test code = 2214) 0.79 MG/DL eGFR AMER. (test cod e = 97252) 116 ML/MIN/1.73 eGFR NON- AMER. (test code = 79454) 100 ML/MIN/1.73 CALC BUN/CREAT (test code = 2235) 6 RATIO SODIUM (test code = 2231) 140 MEQ/L POTASSIUM (test code = 2228) 3.7 MEQ/L CHLORIDE (test code = 2215) 99 MEQ/L CARBON DIOXIDE (test code = 2206) 26 MEQ/L CALCIUM (test code = 2209) 9.8 MG/DL PROTEIN, TOTAL (test code = 2229) 7.9 G/DL ALBUMIN (test code = 2201) 4.9 G/DL CALC GLOBULIN (test code = 2240) 3.0 G/DL CALC A/G RATIO (test code = 2234) 1.6 RATIO BILIRUBIN, TOTAL (test code = 2207) 0.4 MG/DL ALKALINE PHOSPHATASE (test code = 2204) 65 U/L AST (test code = 2218) 21 U/L ALT (test code = 2219) 16 U/L Miguel Rodriguez AustinLIPID [id number] 00:00:00* Test Item Value Reference Range Interpretation Comme nts CHOLESTEROL (test code = 2210) 172 MG/DL TRIGLYCERIDES (test code = 2232) 89 MG/DL HDL CHOLESTEROL (test code = 2220) 56 MG/DL CALC LDL CHOL (test code = 2237) 98 MG/DL RISK RATIO LDL/HDL (test cod e = 2238) 1.75 RATIO Miguel Rodriguez AustinCOMPREHENSIVE METABOLIC [id number] 00:00:00* Test Item Value Reference Range Interpretation Comme nts GLUCOSE (test code = 2217) 92 MG/DL BUN (test code = 2208) 5 MG/DL CREATININE (test code = 2214) 0.79 MG/DL eGFR AMER. (test cod e = 29568) 116 ML/MIN/1.73 eGFR NON- AMER. (test code = 21676) 100 ML/MIN/1.73 CALC BUN/CREAT (test code = 2235) 6 RATIO SODIUM (test code = 2231) 140 MEQ/L POTASSIUM (test code = 2228) 3.7 MEQ/L CHLORIDE (test code = 2215) 99 MEQ/L CARBON DIOXIDE (test code = 2206) 26 MEQ/L CALCIUM (test code = 2209) 9.8 MG/DL PROTEIN, TOTAL (test code = 2229) 7.9 G/DL ALBUMIN (test code = 2201) 4.9 G/DL CALC GLOBULIN (test code = 2240) 3.0 G/DL CALC A/G RATIO (test code = 2234) 1.6 RATIO BILIRUBIN, TOTAL (test code = 2207) 0.4 MG/DL ALKALINE PHOSPHATASE (test code = 2204) 65 U/L AST (test code = 2218) 21 U/L ALT (test code = 2219) 16 U/L Miguel Rodriguez AustinLIPID [id number] 00:00:00* Test Item Value Reference Range Interpretation Comme nts CHOLESTEROL (test code = 2210) 172 MG/DL TRIGLYCERIDES (test code = 2232) 89 MG/DL HDL CHOLESTEROL (test code = 2220) 56 MG/DL CALC LDL CHOL (test code = 2237) 98 MG/DL RISK RATIO LDL/HDL (test cod e = 2238) 1.75 RATIO Miguel Rodriguez AustinCOMPREHENSIVE METABOLIC [id number] 00:00:00* Test Item Value Reference Range Interpretation Comme nts GLUCOSE (test code = 2217) 92 MG/DL BUN (test code = 2208) 5 MG/DL CREATININE (test code = 2214) 0.79 MG/DL eGFR AMER. (test cod e = 74050) 116 ML/MIN/1.73 eGFR NON- AMER. (test code = 89137) 100 ML/MIN/1.73 CALC BUN/CREAT (test code = 2235) 6 RATIO SODIUM (test code = 2231) 140 MEQ/L POTASSIUM (test code = 2228) 3.7 MEQ/L CHLORIDE (test code = 2215) 99 MEQ/L CARBON DIOXIDE (test code = 2206) 26 MEQ/L CALCIUM (test code = 2209) 9.8 MG/DL PROTEIN, TOTAL (test code = 2229) 7.9 G/DL ALBUMIN (test code = 2201) 4.9 G/DL CALC GLOBULIN (test code = 2240) 3.0 G/DL CALC A/G RATIO (test code = 2234) 1.6 RATIO BILIRUBIN, TOTAL (test code = 2207) 0.4 MG/DL ALKALINE PHOSPHATASE (test code = 2204) 65 U/L AST (test code = 2218) 21 U/L ALT (test code = 2219) 16 U/L Miguel Rodriguez AustinLIPID [id number] 00:00:00* Test Item Value Reference Range Interpretation Comme nts CHOLESTEROL (test code = 2210) 172 MG/DL TRIGLYCERIDES (test code = 2232) 89 MG/DL HDL CHOLESTEROL (test code = 2220) 56 MG/DL CALC LDL CHOL (test code = 2237) 98 MG/DL RISK RATIO LDL/HDL (test cod e = 2238) 1.75 RATIO Miguel Rodriguez AustinLIPID [id number] 00:00:00* Test Item Value Reference Range Interpretation Comme nts CHOLESTEROL (test code = 2210) 230 MG/DL TRIGLYCERIDES (test code = 2232) 205 MG/DL HDL CHOLESTEROL (test code = 2220) 47 MG/DL CALC LDL CHOL (test code = 2237) 142 MG/DL RISK RATIO LDL/HDL (test cod e = 2238) 3.02 RATIO Miguel Rodriguez AustinCOMPREHENSIVE METABOLIC [id number] 00:00:00* Test Item Value Reference Range Interpretation Comme nts GLUCOSE (test code = 2217) 97 MG/DL BUN (test code = 2208) 8 MG/DL CREATININE (test code = 2214) 0.84 MG/DL eGFR AMER. (test cod e = 42404) 113 ML/MIN/1.73 eGFR NON- AMER. (test code = 12107) 98 ML/MIN/1.73 CALC BUN/CREAT (test code = 2235) 10 RATIO SODIUM (test code = 2231) 137 MEQ/L POTASSIUM (test code = 2228) 3.9 MEQ/L CHLORIDE (test code = 2215) 96 MEQ/L CARBON DIOXIDE (test code = 2206) 30 MEQ/L CALCIUM (test code = 2209) 9.4 MG/DL PROTEIN, TOTAL (test code = 2229) 7.7 G/DL ALBUMIN (test code = 2201) 4.8 G/DL CALC GLOBULIN (test code = 2240) 2.9 G/DL CALC A/G RATIO (test code = 2234) 1.7 RATIO BILIRUBIN, TOTAL (test code = 2207) 0.4 MG/DL ALKALINE PHOSPHATASE (test code = 2204) 59 U/L AST (test code = 2218) 25 U/L ALT (test code = 2219) 14 U/L Miguel Jennifer RydeLIPID [id number] 00:00:00* Test Item Value Reference Range Interpretation Comme nts CHOLESTEROL (test code = 2210) 230 MG/DL TRIGLYCERIDES (test code = 2232) 205 MG/DL HDL CHOLESTEROL (test code = 2220) 47 MG/DL CALC LDL CHOL (test code = 2237) 142 MG/DL RISK RATIO LDL/HDL (test cod e = 2238) 3.02 RATIO Miguel Rodriguez MychalCOMPREHENSIVE METABOLIC [id number] 00:00:00* Test Item Value Reference Range Interpretation Comme nts GLUCOSE (test code = 2217) 97 MG/DL BUN (test code = 2208) 8 MG/DL CREATININE (test code = 2214) 0.84 MG/DL eGFR AMER. (test cod e = 69053) 113 ML/MIN/1.73 eGFR NON- AMER. (test code = 20941) 98 ML/MIN/1.73 CALC BUN/CREAT (test code = 2235) 10 RATIO SODIUM (test code = 2231) 137 MEQ/L POTASSIUM (test code = 2228) 3.9 MEQ/L CHLORIDE (test code = 2215) 96 MEQ/L CARBON DIOXIDE (test code = 2206) 30 MEQ/L CALCIUM (test code = 2209) 9.4 MG/DL PROTEIN, TOTAL (test code = 2229) 7.7 G/DL ALBUMIN (test code = 2201) 4.8 G/DL CALC GLOBULIN (test code = 2240) 2.9 G/DL CALC A/G RATIO (test code = 2234) 1.7 RATIO BILIRUBIN, TOTAL (test code = 2207) 0.4 MG/DL ALKALINE PHOSPHATASE (test code = 2204) 59 U/L AST (test code = 2218) 25 U/L ALT (test code = 2219) 14 U/L Miguel HortaLIPID [id number] 00:00:00* Test Item Value Reference Range Interpretation Comme nts CHOLESTEROL (test code = 2210) 230 MG/DL TRIGLYCERIDES (test code = 2232) 205 MG/DL HDL CHOLESTEROL (test code = 2220) 47 MG/DL CALC LDL CHOL (test code = 2237) 142 MG/DL RISK RATIO LDL/HDL (test cod e = 2238) 3.02 RATIO Miguel HortaCOMPREHENSIVE METABOLIC [id number] 00:00:00* Test Item Value Reference Range Interpretation Comme nts GLUCOSE (test code = 2217) 97 MG/DL BUN (test code = 2208) 8 MG/DL CREATININE (test code = 2214) 0.84 MG/DL eGFR AMER. (test cod e = 74721) 113 ML/MIN/1.73 eGFR NON- AMER. (test code = 40439) 98 ML/MIN/1.73 CALC BUN/CREAT (test code = 2235) 10 RATIO SODIUM (test code = 2231) 137 MEQ/L POTASSIUM (test code = 2228) 3.9 MEQ/L CHLORIDE (test code = 2215) 96 MEQ/L CARBON DIOXIDE (test code = 2206) 30 MEQ/L CALCIUM (test code = 2209) 9.4 MG/DL PROTEIN, TOTAL (test code = 2229) 7.7 G/DL ALBUMIN (test code = 2201) 4.8 G/DL CALC GLOBULIN (test code = 2240) 2.9 G/DL CALC A/G RATIO (test code = 2234) 1.7 RATIO BILIRUBIN, TOTAL (test code = 2207) 0.4 MG/DL ALKALINE PHOSPHATASE (test code = 2204) 59 U/L AST (test code = 2218) 25 U/L ALT (test code = 2219) 14 U/L Miguel Rodriguez AustinCOMPREHENSIVE METABOLIC [id number] 00:00:00* Test Item Value Reference Range Interpretation Comme nts GLUCOSE (test code = 2217) 100 MG/DL BUN (test code = 2208) 14 MG/DL CREATININE (test code = 2214) 1.02 MG/DL eGFR AMER. (test cod e = 03284) 95 ML/MIN/1.73 eGFR NON- AMER. (test code = 57591) 82 ML/MIN/1.73 CALC BUN/CREAT (test code = 2235) 14 RATIO SODIUM (test code = 2231) 134 MEQ/L POTASSIUM (test code = 2228) 4.8 MEQ/L CHLORIDE (test code = 2215) 93 MEQ/L CARBON DIOXIDE (test code = 2206) 20 MEQ/L CALCIUM (test code = 2209) 10.5 MG/DL PROTEIN, TOTAL (test code = 2229) 9.7 G/DL ALBUMIN (test code = 2201) 5.7 G/DL CALC GLOBULIN (test code = 2240) 4.0 G/DL CALC A/G RATIO (test code = 2234) 1.4 RATIO BILIRUBIN, TOTAL (test code = 2207) 0.4 MG/DL ALKALINE PHOSPHATASE (test code = 2204) 81 U/L AST (test code = 2218) 22 U/L ALT (test code = 2219) 13 U/L Miguel Rodriguez AustinLIPID [id number] 00:00:00* Test Item Value Reference Range Interpretation Comme nts CHOLESTEROL (test code = 2210) 266 MG/DL TRIGLYCERIDES (test code = 2232) 239 MG/DL HDL CHOLESTEROL (test code = 2220) 71 MG/DL CALC LDL CHOL (test code = 2237) 147 MG/DL RISK RATIO LDL/HDL (test cod e = 2238) 2.07 RATIO Miguel Rodriguze AustinCOMPREHENSIVE METABOLIC [id number] 00:00:00* Test Item Value Reference Range Interpretation Comme nts GLUCOSE (test code = 2217) 100 MG/DL BUN (test code = 2208) 14 MG/DL CREATININE (test code = 2214) 1.02 MG/DL eGFR AMER. (test cod e = 09220) 95 ML/MIN/1.73 eGFR NON- AMER. (test code = 42309) 82 ML/MIN/1.73 CALC BUN/CREAT (test code = 2235) 14 RATIO SODIUM (test code = 2231) 134 MEQ/L POTASSIUM (test code = 2228) 4.8 MEQ/L CHLORIDE (test code = 2215) 93 MEQ/L CARBON DIOXIDE (test code = 2206) 20 MEQ/L CALCIUM (test code = 2209) 10.5 MG/DL PROTEIN, TOTAL (test code = 2229) 9.7 G/DL ALBUMIN (test code = 2201) 5.7 G/DL CALC GLOBULIN (test code = 2240) 4.0 G/DL CALC A/G RATIO (test code = 2234) 1.4 RATIO BILIRUBIN, TOTAL (test code = 2207) 0.4 MG/DL ALKALINE PHOSPHATASE (test code = 2204) 81 U/L AST (test code = 2218) 22 U/L ALT (test code = 2219) 13 U/L Miguel Rodriguez RydeLIPID [id number] 00:00:00* Test Item Value Reference Range Interpretation Comme nts CHOLESTEROL (test code = 2210) 266 MG/DL TRIGLYCERIDES (test code = 2232) 239 MG/DL HDL CHOLESTEROL (test code = 2220) 71 MG/DL CALC LDL CHOL (test code = 2237) 147 MG/DL RISK RATIO LDL/HDL (test cod e = 2238) 2.07 RATIO Miguel HortaCOMPREHENSIVE METABOLIC [id number] 00:00:00* Test Item Value Reference Range Interpretation Comme nts GLUCOSE (test code = 2217) 100 MG/DL BUN (test code = 2208) 14 MG/DL CREATININE (test code = 2214) 1.02 MG/DL eGFR AMER. (test cod e = 73414) 95 ML/MIN/1.73 eGFR NON- AMER. (test code = 56164) 82 ML/MIN/1.73 CALC BUN/CREAT (test code = 2235) 14 RATIO SODIUM (test code = 2231) 134 MEQ/L POTASSIUM (test code = 2228) 4.8 MEQ/L CHLORIDE (test code = 2215) 93 MEQ/L CARBON DIOXIDE (test code = 2206) 20 MEQ/L CALCIUM (test code = 2209) 10.5 MG/DL PROTEIN, TOTAL (test code = 2229) 9.7 G/DL ALBUMIN (test code = 2201) 5.7 G/DL CALC GLOBULIN (test code = 2240) 4.0 G/DL CALC A/G RATIO (test code = 2234) 1.4 RATIO BILIRUBIN, TOTAL (test code = 2207) 0.4 MG/DL ALKALINE PHOSPHATASE (test code = 2204) 81 U/L AST (test code = 2218) 22 U/L ALT (test code = 2219) 13 U/L Miguel HortaLIPID [id number] 00:00:00* Test Item Value Reference Range Interpretation Comme nts CHOLESTEROL (test code = 2210) 266 MG/DL TRIGLYCERIDES (test code = 2232) 239 MG/DL HDL CHOLESTEROL (test code = 2220) 71 MG/DL CALC LDL CHOL (test code = 2237) 147 MG/DL RISK RATIO LDL/HDL (test cod e = 2238) 2.07 RATIO Miguel Horta
[2024-12-18] MEDS ORDERED: KETOROLAC 30 MG/ML INJ ONE (06:34)
[2024-12-18] MEDS ORDERED: DIPHENHYDRAMINE 50 MG/ML VIAL ONE (06:34)
[2024-12-18] MEDS ORDERED: METOCLOPRAMIDE 10 MG/2mL INJ ONE (06:35)
[2024-12-18] MEDS ORDERED: NA CHLORIDE 0.9% 250 ML ONE ×2 (06:35→08:02)
[2024-12-18 06:54] LABS: Absolute Lymphocytes (CBC) 1.8 K/uL (0.7-4.9); Absolute Monocytes 1.7 K/uL (0.1-1.3); Absolute Neutrophil 24.5 K/uL (1.8-8.0); Basophils % 0.1 % (0-1.3); Hematocrit 30.1 % (39.6-49.0); Hemoglobin 10.6 g/dL (13.6-17.9); Lymphocytes % 6.3 % (15.3-44.8); MCH 30.9 pg (27.0-35.0); MCHC 35.1 g/dL (32.0-36.0); MCV 88.1 fL (80-100); MPV 6.8 fL (7.6-11.3); Neutrophils % 87.6 % (41.7-73.7); Platelets 727 thou/uL (152-406); RBC Red Blood Cell Count 3.42 M/uL (4.33-5.43); Red Cell Distribution Width 13.2 % (12.1-15.2)
[2024-12-18 07:11] LABS: Anion Gap 9.8 mEq/L (5.0-15.0); Potassium 2.8 mEq/L (3.5-5.1)
--- NOTE | 2024-12-18 07:20 | RAD REPORT ---
Procedure: Chest Single View HISTORY: Cough COMPARISON: 2012 FINDINGS: Several right lung nodular opacities.. Lateral right base hazy nodular opacity adjacent to left hilum . No significant pleural effusion noted. The heart is normal size. IMPRESSION: Several right lung nodular opacities may represent pulmonary nodules. These could be neoplastic or in fectious Right lateral lung base is hazy which may indicate an infiltrate.
--- NOTE | 2024-12-18 07:38 | ER ---
Nurse's Notes [facility] Name: Carrillo Franklin Age: 64 yrs Sex: Male : 1960 Arrival Date: 12/18/2024 Time: 05:39 Bed 15 Private MD: Diagnosis: Pneumonia, unspecified organism;Hypo-osmolality and hyponatremia;Hypokalemia Presentation: 12/18 06:06 Chief complaint: Patient states: FEVER, COUGH AND BODYACHS, DIARRHEA WAS DX WITH THE br2 FLU AT [facility] AND WAS GIVEN MEDS BUT ISN'T FEELING BETTER YET. Coronavirus screen: Client indicates they have traveled out of the [place] in the last 14 days. Initial Sepsis Screen: Does the patient meet any 2 criteria? No. Patient's initial sepsis screen is negative. Does the patient have a suspected source of infection? No. Patient's initial sepsis screen is negative. Risk Assessment: Do you want to hurt yourself or someone else? Patient reports no desire to harm self or others. Onset of symptoms was December 04, 2024. 06:06 Method Of Arrival: EMS: [facility] br2 06:06 Acuity: VIC 4 br2 Triage Assessment: 06:10 General: Appears uncomfortable, Behavior is calm, cooperative. Pain: Complains of pain br2 in neck, chest, abdomen, pelvis, right arm, left arm, left hand, right leg, right foot, left leg and left foot. Respiratory: Reports cough that is productive, Airway is patent Respiratory effort is even, unlabored, Respiratory pattern is regular, symmetrical. 06:10 Respiratory: Breath sounds are diminished bilaterally. br2 Historical: - Allergies: 06:10 No Known Allergies; br2 - PMHx: 06:10 Hypertensive disorder; br2 - Immunization history:: Adult Immunizations up to date. - Infectious Disease History:: Denies. - Social history:: Smoking status: Patient reports the use of cigarette tobacco products, smokes one-half pack cigarettes per day. Screenin:10 [facility] ED Fall Risk Assessment (Adult) History of falling in the last 3 months, br2 including since admission No falls in past 3 months (0 pts) Confusion or Disorientation No (0 pts) Intoxicated or Sedated No (0 pts) Impaired Gait No (0 pts) Mobility Assist Device Used No (0 pt) Altered Elimination No (0 pt) Score/Fall Risk Level 0 - 2 = Low Risk. Abuse screen: Denies threats or abuse. Nutritional screening: No deficits noted. Tuberculosis screening: No symptoms or risk factors identified. Assessment: 06:10 Reassessment: SEE TRIAGE ASSESSMENT. br2 Vital Signs: 06:06 BP 112 / 66; Pulse 74; Resp 18; Temp 97.2; Pulse Ox 97% on R/A; Weight 53.07 kg; Height br2 5 ft. 5 in. ; Pain 5/10; 08:04 BP 119 / 66; Pulse 84; Resp 20; Pulse Ox 95% on R/A; mb9 06:06 Body Mass Index 19.47 (53.07 kg, 165.1 cm) br2 06:06 Pain Scale: Adult br2 ED Course: 05:44 Patient arrived in ED. ec2 06:03 Valeriy Rivera MD is Attending Physician. ec2 06:10 Triage completed. br2 06:10 Maintain EMS IV. Good blood return noted. Site clean \T\ dry. Gauge \T\ site: 20 LEFT br 2 FOREARM. 06:10 Arm band placed on right wrist. br2 06:10 Patient has correct armband on for positive identification. Placed in gown. Bed in low br2 position. Call light in reach. Provided Education on: PLAN OF CARE. 06:12 Jenna Baer, RN is Primary Nurse. br2 06:38 CXR XRAY In Process Unspecified. EDMS 07:07 Attending Physician role handed off by Valeriy Rivera MD ms3 07:07 Jose Alberto Manriquez DO is Attending Physician. ms3 07:37 Corry Valle is Hospitalizing Provider. ms3 07:42 Grant Abdul MD is Hospitalizing Provider. ms3 07:45 Inserted saline lock: 20 gauge in right forearm, using aseptic technique. Blood mb9 collected. Flushed with 10 mL NS. 07:50 EKG done, by ED staff, reviewed by Jose Alberto Manriquez DO. mb9 08:04 Initial lab(s) drawn, by ak, sent to lab. mb9 08:05 No provider procedures requiring assistance completed. mb9 08:10 Patient moved to [place] via wheelchair. mb9 08:10 Patient admitted, IV remains in place. mb9 08:[address] In Process Unspecified. EDMS Administered Medications: 06:46 Drug: NS 0.9% IV 250 ml IV at bolus once; to be given as a bolus over 30 minutes Route: br2 IV; Rate: bolus; Site: left forearm; 08:10 Follow up: Response: No adverse reaction; IV Status: Completed infusion mb9 06:46 Drug: metoCLOPramide IVP 10 mg IVP once; over 1 to 2 minutes Route: IVP; Site: left br2 forearm; 07:22 Follow up: Response: No adverse reaction mb9 06:46 Drug: diphenhydrAMINE IVP 25 mg IVP once Route: IVP; Site: left forearm; br2 08:10 Follow up: Response: No adverse reaction mb9 06:46 Drug: Ketorolac IVP 15 mg IVP once Route: IVP; Site: left forearm; br2 08:10 Follow up: Response: No adverse reaction mb9 08:09 Drug: Potassium Chloride PO 40 mEq PO once Route: PO; mb9 08:47 Follow up: Response: No adverse reaction mb9 08:22 Drug: Rocephin IV 1 grams IV at calculated rate once; Given slow IV push per pharmacy mb9 instructions Route: IV; Rate: calculated rate; Site: left forearm; 08:47 Follow up: Response: No adverse reaction; IV Status: Completed infusion mb9 08:22 Drug: AZITHromycin IVPB 500 mg IVPB once over 1 hrs; (mix in 250 mL NS) Route: IVPB; mb9 Infused Over: 1 hrs; Site: right forearm; Medication: 08:05 VIS not applicable for this client. mb9 Outcome: 07:38 Decision to Hospitalize by Provider. ms3 10:01 Patient left the ED. mb9 Signatures: Dispatcher [employer] EDJose Alberto Cruz DO DO ms3 Mary Hansen RN RN mb9 Valeriy Rivera MD MD ec2 Jenna Baer RN RN br2
--- NOTE | 2024-12-18 07:39 | EDPHYS ---
Physician Documentation [facility] Name: Carrillo Franklin Age: 64 yrs Sex: Male : 1960 Arrival Date: 12/18/2024 Time: 05:39 Bed 15 Private MD: ED Physician Jose Alberto Manriquez HPI: 12/18 06:14 This 64 yrs old Male presents to ER via EMS with complaints of Flu Symptoms. ec2 06:14 Patient arrives today for URI signs and symptoms.. ec2 06:14 Patient reports that he has been experiencing several weeks of cough and cold symptoms, ec2 was recently diagnosed with influenza, states that he is here to be evaluated as he is having persistent symptoms. Finished a course of Tamiflu as well. Patient reports cough and congestion, rhinorrhea, myalgias as well.. Historical: - Allergies: 06:10 No Known Allergies; br2 - PMHx: 06:10 Hypertensive disorder; br2 - Immunization history:: Adult Immunizations up to date. - Infectious Disease History:: Denies. - Social history:: Smoking status: Patient reports the use of cigarette tobacco products, smokes one-half pack cigarettes per day. ROS: 06:14 Constitutional: as per hpi ec2 Exam: 06:14 Constitutional: GEN: NAD Head: atraumatic Eyes: EOMI Ears: External ears are ec2 normal. CV: regular rate LUNGS: no respiratory distress, no wheezes or rales or rhonchi ABD: non-distended SKIN: no evidence of rashes MSK: no evidence of trauma 07:59 ECG was reviewed by the Attending Physician. ms3 Vital Signs: 06:06 BP 112 / 66; Pulse 74; Resp 18; Temp 97.2; Pulse Ox 97% on R/A; Weight 53.07 kg; Height br2 5 ft. 5 in. ; Pain 5/10; 08:04 BP 119 / 66; Pulse 84; Resp 20; Pulse Ox 95% on R/A; mb9 06:06 Body Mass Index 19.47 (53.07 kg, 165.1 cm) br2 06:06 Pain Scale: Adult br2 MDM: 06:08 Medical Screening Exam initiated ec2 06:14 Data reviewed: vital signs, nurses notes. ED course: Patient arrives today for upper ec2 respiratory symptoms. Examination yields reassuring cardiopulmonary examination. Will obtain lab work, chest x-ray. Suspect sequela of recent viral infection. Possible postinfectious pneumonia.. 06:56 ED course: Will sign patient out w/ pending labs and cxr. ec2 07:07 Transition of care: Care assumed from Valeriy Rivera MD. ms3 07:43 Differential Diagnosis flu, Pneumonia vs Electrolyte abnormalities. Consideration of ms3 Admission/Observation Patient was admitted/placed on observation. Management of patient was discussed with the following: Hospitalist: Dr Abdul. I considered the following discharge prescriptions or medication management in the emergency department Medications were administered in the Emergency Department. See MAR. Care significantly affected by the following chronic conditions: Hypertension. Counseling: I had a detailed discussion with the patient and/or guardian regarding the historical points, exam findings, and any diagnostic results supporting the discharge/admit diagnosis, lab results, radiology results, the need for further work-up and treatment in the hospital. ED course: Patient with PNA on CXR and WBC 28k. Patient also with hyponatremia and hypokalemia. Patient given abx for pna and sepsis labs ordered and pending. Potassium replacement ordered. . 12/18 06:12 Order name: CBC with Diff ec2 12/18 06:12 Order name: BMP; Complete Time: 07:18 ec2 12/18 07:19 Order name: Blood Culture Adult (2) ms3 12/18 07:19 Order name: Lactate w/ 2H reflex if indic.; Complete Time: 09:22 ms3 12/18 07:19 Order name: Protime (+inr); Complete Time: 08:25 ms3 12/18 07:19 Order name: Ptt, Activated; Complete Time: 08:25 ms3 12/18 07:19 Order name: LFT's; Complete Time: 08:25 ms3 12/18 08:09 Order name: Magnesium; Complete Time: 09:22 ld1 12/18 06:12 Order name: CXR XRAY; Complete Time: 07:24 ec2 12/18 08:05 Order name: Chest Wo Con CT; Complete Time: 08:25 ld1 12/18 06:12 Order name: IV; Complete Time: 07:07 ec2 12/18 07:19 Order name: Accucheck; Complete Time: 08:04 ms3 12/18 07:19 Order name: Cardiac monitoring; Complete Time: 08:04 ms3 12/18 07:19 Order name: EKG - Nurse/Tech; Complete Time: 08:04 ms3 12/18 07:19 Order name: IV Saline Lock - Large Bore; Complete Time: 08:04 ms3 12/18 07:19 Order name: Labs collected and sent; Complete Time: 08:04 ms3 12/18 07:19 Order name: O2 Per Protocol; Complete Time: 08:04 ms3 12/18 07:19 Order name: O2 Sat Monitoring; Complete Time: 08:04 ms3 12/18 07:19 Order name: Vital Signs; Complete Time: 08:04 ms3 EC:59 Rate is 75 beats/min. Rhythm is regular. QRS Rough And Ready is Normal. NM interval is normal. QRS ms3 interval is normal. Clinical impression: Normal ECG. Interpreted by me. Reviewed by me. Administered Medications: 06:46 Drug: NS 0.9% IV 250 ml IV at bolus once; to be given as a bolus over 30 minutes Route: br2 IV; Rate: bolus; Site: left forearm; 08:10 Follow up: Response: No adverse reaction; IV Status: Completed infusion mb9 06:46 Drug: metoCLOPramide IVP 10 mg IVP once; over 1 to 2 minutes Route: IVP; Site: left br2 forearm; 07:22 Follow up: Response: No adverse reaction mb9 06:46 Drug: diphenhydrAMINE IVP 25 mg IVP once Route: IVP; Site: left forearm; br2 08:10 Follow up: Response: No adverse reaction mb9 06:46 Drug: Ketorolac IVP 15 mg IVP once Route: IVP; Site: left forearm; br2 08:10 Follow up: Response: No adverse reaction mb9 08:09 Drug: Potassium Chloride PO 40 mEq PO once Route: PO; mb9 08:47 Follow up: Response: No adverse reaction mb9 08:22 Drug: Rocephin IV 1 grams IV at calculated rate once; Given slow IV push per pharmacy mb9 instructions Route: IV; Rate: calculated rate; Site: left forearm; 08:47 Follow up: Response: No adverse reaction; IV Status: Completed infusion mb9 08:22 Drug: AZITHromycin IVPB 500 mg IVPB once over 1 hrs; (mix in 250 mL NS) Route: IVPB; mb9 Infused Over: 1 hrs; Site: right forearm; Disposition Summary: 12/18/24 07:38 Hospitalization Ordered Notes: Hospitalization Status: Inpatient Admission ms3 Condition: Stable ms3 Problem: new ms3 Symptoms: are unchanged ms3 Bed/Room Type: Standard ms3 Provider: Grant Abdul(12/18/24 07:42) ms3 Location: Telemetry/MedSurg (Inpatient)(12/18/24 08:10) bd Room Assignment: 420(12/18/24 08:10) bd Diagnosis - Pneumonia, unspecified organism ms3 - Hypo-osmolality and hyponatremia ms3 - Hypokalemia ms3 Discharge Instructions: - Discharge Summary Sheet ec2 - Viral Illness, Adult ec2 Forms: - Medication Reconciliation Form ms3 - SBAR form ms3 - Leadership Thank You Letter ms3 Prescriptions: - Tessalon Perles 100 mg Oral Capsule - take 1 capsule ORAL route every 8 hours As needed; 15 capsule; Refills: 0, ec2 Product Selection Permitted Signatures: Dispatcher [employer] EDMS Alicia Herrera bd Jose Alberto Manriquez, DO ms3 Ivonne Villareal, RN RN kb3 Mary Hansen RN RN mb9 Valeriy Rivera MD MD ec2 Jenna Baer RN RN br2 Corrections: (The following items were deleted from the chart) 07:42 07:38 Valle, Il-Ran ms3 ms3 08:05 08:05 Thorax Wo Con+CT.RAD.BRZ ordered. EDMS EDMS 08:06 07:38 Telemetry/MedSurg (Inpatient) ms3 kb3 08:06 07:38 ms3 kb3 08:10 08:06 [facility] ER HOLD kb3 bd 08:10 08:06 ERHOLD- kb3 bd
[2024-12-18] MEDS ORDERED: POTASSIUM CL SA 10 MEQ TAB PO ONE (08:01)
[2024-12-18] MEDS ORDERED: CEFTRIAXONE 1000 MG/VIAL ONE (08:01)
[2024-12-18] MEDS ORDERED: AZITHROMYCIN 500 MG INJ IVPB ONE (08:01)
[2024-12-18 08:16] LABS: PT Prothrombin Time 14.7 SECONDS (9.4-12.5); PTT, Activated Partial Thromb 29.6 SECONDS (24.3-36.9); Protime INR 1.4
[2024-12-18 08:23] LABS: Albumin 2.6 g/dL (3.4-5.0); Albumin/Globulin Ratio 0.5 (1.1-1.8); Bilirubin Direct 0.2 mg/dL (0-0.2); Bilirubin Indirect, Calculated 0.3 mg/dL (0.2-0.8); Bilirubin Total 0.5 mg/dL (0.2-1.0); Globulin 5.3 g/dL (2.3-3.5); Protein, Total 7.9 g/dL (6.4-8.2)
--- NOTE | 2024-12-18 08:24 | RAD REPORT ---
EXAM:Thorax Wo Con CLINICAL INDICATION: Abnormal chest x-ray. Pulmonary nodules. TECHNIQUE: CT chest performed.. Axial, sagittal and coronal reconstructions were obtained. One or mor e of the following dose reduction techniques were used: Automated exposure control, adjustment of the mA and/or kV according to the patient size, and/or iterative reconstruction. Unless otherwise specified, incidental findings do not require dedicated imaging follow-up. [id number]. COMPARISON: Chest x-ray December 18, 2024 FINDINGS: 1.2 cm nodule left lower lobe. Multiple right lung nodules with most measuring between 1 and 2 cm. Some contain small cavities. Mild right lower lobe opacities probably atelectasis No mediastinal or hilar lymphadenopathy No pleural effusion. Small pericardial effusion Left renal cyst. IMPRESSION: Bilateral pulmonary nodules mostly on the right probably metastases.
[2024-12-18] MEDS ORDERED: ALBUTEROL 2.5 MG/3 ML NEB SOL NEB PRN ×2 (10:14→15:35)
[2024-12-18] MEDS ORDERED: ONDANSETRON 4 MG/2 ML VIAL IV PRN (10:14)
[2024-12-18] MEDS: BENZONATATE 100 MG CAP PO PRN (10:32)
[2024-12-18] MEDS: ENOXAPARIN 40 MG/0.4 ML SQ SCH (10:32)
[2024-12-18] MEDS: NA CHLORIDE 0.9% 1,000 ML IV SCH (10:32)
[2024-12-18 12:11] LABS: Blood Morphology Comment NOT SEEN (NOT SEEN); Platelet Estimate INCR; White Blood Cell Scan OK (OK)
--- NOTE | 2024-12-18 12:41 | EKG ---
Test Date: 2024-12-18 Test Time: 07:53:52 Overnight Houseperson: MB MEASUREMENT RESULTS: Intervals: Rate: 75 CO: 172 QRSD: 108 QT: 402 QTc: 448 [place]: P: 72 CO: 172 QRS: 53 T: 67 INTERPRETIVE STATEMENTS: Normal sinus rhythm Normal ECG Compared to ECG 08/02/2017 05:33:44 Sinus tachycardia no longer present Myocardial infarct finding no longer present Electronically Signed On 12-18-24 12:40:24 DECK HAND by Jose David Ramirez
--- NOTE | 2024-12-18 13:17 | P.HP ---
Certification for Inpatient Patient admitted to: Inpatient With expected LOS: >2 Midnights Patient will require the following post-hospital care: None Practitioner: I am a practitioner with admitting privileges, knowledge of patient current condition, hospital course, and medical plan of care. Services: Services provided to patient in accordance with Admission requirements found in Title 42 Section 412.3 of the Code of Federal Regulations Patient History Date of Service: 12/18/24 History of Present Illness: 64-year-old male with history of hypertension presents to the emergency department with chief complaint of shortness of breath and weakness. He reports being diagnosed with the flu outpatient on 12/05/24. He completed a course of Tamiflu but still been feeling unwell since then. Hhe was evaluated in the ER his labs were significant for a white blood cell count of 28, hemoglobin 10.6 hematocrit 30.1 platelets 727 sodium 127 potassium 2.8 chloride 95 lactic acid 0.8 Chest x-ray showed several right lung nodular opacities may represent pulmonary nodules. These could be neoplastic or infectious. Right lateral lung base is hazy which may indicate an infiltrate. Subsequent CT of the chest was performed which showed pulmonary nodules mostly on the right probably metastasis. Patient does admit to smoking although he has significantly reduced how much she smokes daily, smoking around 4 cigarettes/day. Patient was started on antibiotics in the ER, will be admitted for further management. Allergies No Known Allergies Allergy (Unverified 01/31/13 03:45) Home Medications: Amlodipine Besylate 10 mg PO DAILY 12/18/24 Carvedilol [Coreg] 25 mg PO BID 12/18/24 Lovastatin [Altoprev] 20 mg PO DAILY 12/18/24 lisinopriL [Prinivil*] 40 mg PO DAILY 12/18/24 - Past Medical/Surgical History Has patient received pneumonia vaccine in the past: No Diabetic: No -: SMOKER -: HTN -: ULCER Psychosocial/ Personal History: Lives at home, alone. - Family History Family History: Reviewed- Non-Contributory - Social History Smoking Status: Current every day smoker Alcohol use: No CD- Drugs: No Caffeine use: Yes Place of Residence: Home Review of Systems 10-point ROS is otherwise unremarkable General: Weakness, Malaise Respiratory: Cough, Shortness of Breath Physical Examination - Vital Signs Temperature: 97.2 F Blood Pressure: 119/66 Pulse: 84 Respirations: 20 - Physical Exam General: Alert, In no apparent distress, Oriented x3 HEENT: Atraumatic, PERRLA, EOMI Neck: Supple, 2+ carotid pulse no bruit, No LAD Respiratory: Clear to auscultation bilaterally, Normal air movement Cardiovascular: Regular rate/rhythm, Normal S1 S2 Gastrointestinal: Normal bowel sounds Musculoskeletal: No tenderness Integumentary: No rashes Neurological: Normal gait, Normal speech, Normal strength at 5/5 x4 extr, Normal tone - Studies Laboratory Data (last 24 hrs) 12/18/24 12/18/24 12/18/24 07:55 07:55 07:55 WBC Hgb Hct Plt Count PT 14.7 H INR 1.40 APTT 29.6 Sodium Potassium BUN Creatinine Glucose Magnesium 2.1 Total Bilirubin 0.5 AST 12 L ALT 24 Alkaline Phosphatase 62 12/18/24 12/18/24 06:24 06:24 WBC 28.00 H Hgb 10.6 L Hct 30.1 L Plt Count 727 H PT INR APTT Sodium 127 L Potassium 2.8 L BUN 10 Creatinine 0.73 Glucose 110 H Magnesium Total Bilirubin AST ALT Alkaline Phosphatase Assessment and Plan - Plan Assessment: Right pneumonia-recent influenza Multiple pulmonary nodules-more on the right Hyponatremia Hypokalemia HTN HLD Tobacco use disorder Plan: Right pneumonia-recent influenza Multiple pulmonary nodules-more on the right Continue antibiotics Blood cultures obtained in ED, lactate 0.8 Pulmonology consulted, nodules concerning for possible metastasis Hyponatremia Hypokalemia IV fluids and potassium protocol Repeat chemistry this afternoon HTN HLD Continue home meds Tobacco use disorder Counseled on importance of cessation DVT PPX:Lovenox Code status:Full Discharge Plan: Home Plan to discharge in: 72 Hours - Advance Directives Does patient have a Living Will: No Does patient have a Durable POA for Healthcare: No - Code Status/Comfort Care Code Status Assessed: Yes (Full Code) Critical Care: No Time Spent Managing Pts Care (In Minutes): 67
[2024-12-18 14:44] LABS: Anion Gap 9.1 mEq/L (5.0-15.0); Potassium 3.1 mEq/L (3.5-5.1)
[2024-12-18] MEDS: POTASSIUM 25 MEQ EFFERV TAB PO ONE (16:01)
[2024-12-18 16:13] LABS: Specific Gravity 1.012 (1.005-1.030); Urine Bilirubin NEGATIVE (Negative); Urine Blood Negative (Negative); Urine Clarity Clear (Clear); Urine Color Light-Yellow (Yellow); Urine Glucose NEGATIVE (Negative); Urine Ketones 1+ (Negative); Urine Microscopic Reflex YN NO UMIC; Urine Nitrite NEGATIVE (Negative); Urine Protein NEGATIVE (Negative); Urine Urobilinogen Normal (Normal)
[2024-12-18] MEDS: carvediloL 25 MG TAB PO SCH (17:44)
[2024-12-18] MEDS: ALPRAZOLAM 0.5 MG TABLET PO ONE (17:45)
[2024-12-18] MEDS: TRAMADOL HCL 50 MG TAB PO PRN (20:31)
[2024-12-18] MEDS: MELATONIN 5 MG TABLET PO PRN (20:31)
[2024-12-18] MEDS: POTASSIUM CL SA 10 MEQ TAB PO ONE (21:14)
[2024-12-19 06:57] LABS: Absolute Lymphocytes (CBC) 1.7 K/uL (0.7-4.9); Absolute Monocytes 1.8 K/uL (0.1-1.3); Absolute Neutrophil 20.3 K/uL (1.8-8.0); Basophils % 0.2 % (0-1.3); Hematocrit 28.5 % (39.6-49.0); Hemoglobin 9.9 g/dL (13.6-17.9); MCH 31.3 pg (27.0-35.0); MCHC 34.8 g/dL (32.0-36.0); MCV 90.1 fL (80-100); MPV 6.3 fL (7.6-11.3); Monocytes % 7.5 % (3.3-12.3); Neutrophils % 85.3 % (41.7-73.7); Platelets 709 thou/uL (152-406); RBC Red Blood Cell Count 3.16 M/uL (4.33-5.43); Red Cell Distribution Width 13.1 % (12.1-15.2)
[2024-12-19 07:06] LABS: Albumin/Globulin Ratio 0.5 (1.1-1.8); Anion Gap 11.4 mEq/L (5.0-15.0); Bilirubin Total 0.5 mg/dL (0.2-1.0); Globulin 4.2 g/dL (2.3-3.5); Potassium 3.4 mEq/L (3.5-5.1); Protein, Total 6.2 g/dL (6.4-8.2)
[2024-12-19 08:29] LABS: Blood Morphology Comment NOT SEEN (NOT SEEN); Differential Total Cells Count 100; Lymphocytes 4 % (15-42); Monocytes 4 % (0-10); Platelet Estimate INCR; Segmented Neutrophils 92 % (40-80)
[2024-12-19] MEDS: AZITHROMYCIN IV 500 MG in NA CHLORIDE 0.9% 250 ML IVPB SCH (08:29)
[2024-12-19] MEDS: AMLODIPINE 10 MG TAB PO SCH (08:30)
[2024-12-19] MEDS: CEFTRIAXONE 1,000 MG in NA CHLORIDE 0.9% 50 ML IVPB SCH (10:40)
[2024-12-19] MEDS: ACETAMINOPHEN 325 MG TABLET PO PRN (16:02)
--- NOTE | 2024-12-19 16:07 | P.PN ---
Date of Service: 12/19/24 Subjective: No acute events overnight febrile ROS: 10 point ROS as noted above, otherwise negative Physical exam GEN: Alert, oriented, NAD HEENT: Normal conjunctiva, sclera anicteric CV: Regular rate and rhythm, no edema Pulm: Nonlabored respirations on nasal cannula 2 L ABD: Soft, nontender, nondistended MSK: No joint tenderness Integumentary: No rashes Neuro: Normal speech, normal affect Vitals reviewed Assessment: Right pneumonia-recent influenza Multiple pulmonary nodules-more on the right Hyponatremia Hypokalemia HTN HLD Tobacco use disorder Plan: Right pneumonia-recent influenza Multiple pulmonary nodules-more on the right Continue antibiotics Blood cultures obtained in ED-no growth in 24 hours on blood cultures, lactate 0.8 Pulmonology consulted, nodules concerning for possible metastasis Pulmonology recommends getting CT-guided lung biopsy on Tuesday which has been ordered, discussed with radiology Hyponatremia Hypokalemia IV fluids and potassium protocol Monitor chemistry daily HTN HLD Continue home meds Tobacco use disorder Counseled on importance of cessation DVT PPX:Lovenox 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
[2024-12-19] MEDS: POTASSIUM CL SA 10 MEQ TAB PO ONE (18:15)
[2024-12-20 07:07] LABS: Absolute Lymphocytes (CBC) 1.3 K/uL (0.7-4.9); Absolute Monocytes 1.4 K/uL (0.1-1.3); Absolute Neutrophil 18.9 K/uL (1.8-8.0); Basophils % 0.1 % (0-1.3); Hematocrit 28.3 % (39.6-49.0); Hemoglobin 9.8 g/dL (13.6-17.9); Lymphocytes % 5.8 % (15.3-44.8); MCH 31.2 pg (27.0-35.0); MCHC 34.7 g/dL (32.0-36.0); MCV 89.9 fL (80-100); MPV 6.4 fL (7.6-11.3); Monocytes % 6.6 % (3.3-12.3); Neutrophils % 87.5 % (41.7-73.7); Platelets 698 thou/uL (152-406); RBC Red Blood Cell Count 3.14 M/uL (4.33-5.43); Red Cell Distribution Width 12.8 % (12.1-15.2)
[2024-12-20 07:57] LABS: Albumin 1.9 g/dL (3.4-5.0); Albumin/Globulin Ratio 0.4 (1.1-1.8); Anion Gap 12.3 mEq/L (5.0-15.0); Bilirubin Total 0.4 mg/dL (0.2-1.0); Globulin 4.5 g/dL (2.3-3.5); Potassium 3.3 mEq/L (3.5-5.1); Protein, Total 6.4 g/dL (6.4-8.2)
--- NOTE | 2024-12-20 10:36 | P.PN ---
Date of Service: 12/20/24 Subjective: No acute events overnight febrile yesterday but improving ROS: 10 point ROS as noted above, otherwise negative Physical exam GEN: Alert, oriented, NAD HEENT: Normal conjunctiva, sclera anicteric CV: Regular rate and rhythm, no edema Pulm: Nonlabored respirations on nasal cannula 2 L ABD: Soft, nontender, nondistended MSK: No joint tenderness Integumentary: No rashes Neuro: Normal speech, normal affect Vitals reviewed Assessment: Right pneumonia-recent influenza Multiple pulmonary nodules-more on the right Hyponatremia Hypokalemia HTN HLD Tobacco use disorder Plan: Right pneumonia-recent influenza Multiple pulmonary nodules-more on the right Continue antibiotics with rocephin and zithromax Blood cultures obtained in ED-no growth in 24 hours on blood cultures, lactate 0.8 Pulmonology consulted, nodules concerning for possible metastasis Pulmonology recommends getting CT-guided lung biopsy on Tuesday which has been ordered, discussed with radiology Hyponatremia Hypokalemia IV fluids and potassium protocol Monitor chemistry daily HTN HLD Continue home meds Tobacco use disorder Counseled on importance of cessation DVT PPX:Lovenox Code status:Ophthalmology Assistant Spent Managing Pts Care (In Minutes): 35
[2024-12-20] MEDS: POTASSIUM 25 MEQ EFFERV TAB PO ONE (20:45)
[2024-12-21 07:10] LABS: Absolute Lymphocytes (CBC) 1.1 K/uL (0.7-4.9); Absolute Monocytes 1.3 K/uL (0.1-1.3); Absolute Neutrophil 14.9 K/uL (1.8-8.0); Basophils % 0.1 % (0-1.3); Hematocrit 26.4 % (39.6-49.0); Hemoglobin 9.2 g/dL (13.6-17.9); Lymphocytes % 6.1 % (15.3-44.8); MCH 31.2 pg (27.0-35.0); MCHC 34.8 g/dL (32.0-36.0); MCV 89.7 fL (80-100); MPV 6.4 fL (7.6-11.3); Monocytes % 7.5 % (3.3-12.3); Neutrophils % 86.3 % (41.7-73.7); PT Prothrombin Time 15.9 SECONDS (9.4-12.5); PTT, Activated Partial Thromb 28.5 SECONDS (24.3-36.9); Platelets 685 thou/uL (152-406); Protime INR 1.52; RBC Red Blood Cell Count 2.95 M/uL (4.33-5.43)
[2024-12-21 07:21] LABS: Albumin 1.9 g/dL (3.4-5.0); Albumin/Globulin Ratio 0.4 (1.1-1.8); Anion Gap 11.8 mEq/L (5.0-15.0); Bilirubin Total 0.5 mg/dL (0.2-1.0); Globulin 4.6 g/dL (2.3-3.5); Potassium 3.8 mEq/L (3.5-5.1); Protein, Total 6.5 g/dL (6.4-8.2)
[2024-12-21] MEDS: FENTANYL CITR 100 MCG/2 ML ONE (09:24)
[2024-12-21] MEDS: FLUMAZENIL 0.1 MG/ML (5 mL VIAL) IV ONE (09:24)
[2024-12-21] MEDS: MIDAZOLAM HCL 2 MG/2 ML INJ ONE (09:24)
[2024-12-21] MEDS: NALOXONE HCL 2 MG/2 ML VIAL ONE (09:25)
--- NOTE | 2024-12-21 10:19 | P.PN ---
Date of Service: 12/21/24 Subjective: No acute events overnight Slowly improving ROS: 10 point ROS as noted above, otherwise negative Physical exam GEN: Alert, oriented, NAD HEENT: Normal conjunctiva, sclera anicteric CV: Regular rate and rhythm, no edema Pulm: Nonlabored respirations on nasal cannula 2 L ABD: Soft, nontender, nondistended MSK: No joint tenderness Integumentary: No rashes Neuro: Normal speech, normal affect Vitals reviewed Assessment: Right pneumonia-recent influenza Multiple pulmonary nodules-more on the right Hyponatremia Hypokalemia HTN HLD Tobacco use disorder Plan: Right pneumonia-recent influenza Multiple pulmonary nodules-more on the right Continue antibiotics with rocephin and zithromax Blood cultures obtained in ED-no growth in 24 hours on blood cultures, lactate 0.8 Pulmonology consulted, nodules concerning for possible metastasis Pulmonology recommends getting CT-guided lung biopsy on Tuesday which has been ordered, discussed with radiology Will have repeat CT today to determine if nodules have improved with antibiotics before proceeding with biopsy Hyponatremia Hypokalemia IV fluids and potassium protocol Monitor chemistry daily HTN HLD Continue home meds Tobacco use disorder Counseled on importance of cessation DVT PPX:Lovenox 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 Events of the last 24 hours have been noted. Case discussed with STACI. I performed a substantial part of the MDM during this patient's care today. I personally made or approved the documented management plan and acknowledge its risk of complications. I agree with the findings and documentation provided in the STACI's notes Spoke with radiology and they feel like this is more of an infectious process as the nodules have increased in size substantially. Additional imaging including CT abdomen and pelvis without any metastatic lesions or any primary lesions. CT of the chest that was repeated shows progression of the pneumonia. Also with pleural effusion. Will hold off on biopsy and reassess in the next few weeks to see if there is resolution of the infiltrates. If there is resolution of the infiltrates and an nodule that is noted has decreased in size or resolve then no further workup necessary. If there is persistent nodule then at that time they are considering doing a FNA. 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 Continue with potassium supplementation. Strict blood pressure control. <Beasley,Mohammad Tommy - Last Filed: 12/23/24 00:11>
--- NOTE | 2024-12-21 12:11 | RAD REPORT ---
EXAMINATION: CT Thorax Wo Con CLINICAL INDICATION: Male, 64 years old. Bilateral pulmonary nodules/masses. F/U BEFORE BIOPSY TECHNIQUE: Axial CT scan of the chest without intravenous contrast. Multiplanar reformats were genera annelise and reviewed. One or more of the following dose reduction techniques were used: Automated exposure control, adjustment of the mA and/or kV according patient size, and/or iterative reconstruct ion. Unless otherwise specified, incidental findings do not require dedicated imaging follow-up. COMPARISON: 12/18/2024 FINDINGS: The patient presented for a scheduled biopsy of one of the numerous bilateral pulmonary lesions. LOWER NECK: Visualized thyroid gland and soft tissues are normal. LUNGS: Progressive dependent right lower lobe segmental airspace opacification with air bronchograms, with progressive peripheral wedge-shaped opacity adjacent to the major fissure as well. Rounded/ovoid 2.3 cm Central nodule on axial image 31 is actually obscured by this finding. Numerous bilateral pulmonary nodules show progressive interval increase in size, with more pronounced peripheral patchy and groundglass opacification. The largest bilobed nodule in the central upper segm ent right lower lobe now measures 3.5 x 1.9 cm, previously measured 3.2 x 1.6 cm. The small central focus of cavitation seen within this abnormality is no longer visualized. Upper segment left lower lo be rounded 1.8 cm nodule on axial image 27 previously measured 1.5 cm. Central right upper lobe 1.7 cm nodule previously measured 1.2 cm, and more posterior right upper lobe nodule approximating the ma haydee fissure measuring 2.5 cm previously measured 1.4 cm. Other smaller nodules/opacities have also increased in size. PLEURA: No pneumothorax. Small left and moderate right pleural effusions, progressive since the prior exam. MEDIASTINUM AND LYMPH NODES: No mediastinal mass or fluid collection. Normal size mediastinal, hilar, and axillary lymph nodes. Mild pericardial effusion, not significantly changed OSSEOUS STRUCTURES AND CHEST WALL: No acute findings. Mild superior endplate compression deformity at T7 and T10 appear stable, with Schmorl's node formation. UPPER ABDOMEN: Separately evaluated on dedicated abdomen/pelvis CT of the same day IMPRESSION: Progressive appearance of numerous bilateral pulmonary nodules/masses, with interval increase in size and more pronounced peripheral patchy and groundglass opacification throughout all nodules, as described above. Progressive bilateral pleural effusions, small on the left and moderate on the right. Progressive dep endent right lower lobe segmental airspace opacification with air bronchogram. Overall findings are concerning for a progressive infectious/inflammatory process. While an underlyin g malignancy cannot be entirely excluded, biopsy of a dominant residual suspicious nodule should be considered following treatment of any acute infections. Pulmonary consultation may be considered if n ot ready obtained. THIS REPORT CONTAINS FINDINGS THAT MAY BE CRITICAL TO PATIENT CARE. The findings and considerations w ere verbally discussed via telephone with Aneudy Beasley MD on 12/21/2024 9:54 AM.
--- NOTE | 2024-12-21 12:16 | RAD REPORT ---
EXAMINATION: CT Abdomen Pelvis W Contrast CLINICAL INDICATION: Male, 64 years old. metastaic disease primary lesion? TECHNIQUE: CT abdomen and pelvis was performed, after the administration of IV contrast, as per [facility] protocol. Axial, sagittal and coronal reconstructions were obtained. One or more of the following dose reduction techniques were used: Automated exposure control, adjustment of the mA and k V according to patient size, and iterative reconstruction. Unless otherwise specified, incidental findings do not require dedicated imaging follow-up. COMPARISON: 01/31/2013 FINDINGS: LOWER CHEST: Separately evaluated on CT chest of the same day LIVER: Normal in size and contour. No focal lesion. BILIARY SYSTEM: Status post cholecystectomy. SPLEEN: Normal size. No focal lesion. PANCREAS: No mass, ductal dilation, or yaneli-pancreatic fluid. ADRENALS: Normal; no mass. KIDNEYS: Nonspecific bilateral mild perinephric fat stranding. Normal size and contour. No hydronephr osis. Bilateral cortical fluid density lesions largest at the left interpolar region measuring 2.6 cm. Other subcentimeter cortical lesions are too small to characterize. Findings statistically likely to represent cysts, although the dominant lesions show interval increase in size since 2012. URINARY BLADDER: Unremarkable. GASTROINTESTINAL TRACT: No evidence of free air,, bowel obstruction or abscess. Mild free pelvic flu id APPENDIX: Normal appendix. LYMPH NODES: No lymphadenopathy. MUSCULOSKELETAL: Superior endplate compression deformities, moderate at L1, and mild at L2 with Schmo rl's node formation, of indeterminate age. No other acute or suspicious osseous abnormality. ADDITIONAL FINDINGS: Mild diffuse body wall edema. IMPRESSION: Mild perinephric fat stranding, nonspecific. Correlate with urinalysis results to exclude underlying infectious/inflammatory process. Mild free pelvic fluid. Superior endplate compression deformities at L1 and L2, of indeterminate age. No discrete abdominal or pelvic masses or suspicious adenopathy.
[2024-12-21] MEDS: POTASSIUM CL SA 10 MEQ TAB PO ONE (15:30)
[2024-12-22 07:05] LABS: Absolute Lymphocytes (CBC) 1.1 K/uL (0.7-4.9); Absolute Monocytes 1.5 K/uL (0.1-1.3); Absolute Neutrophil 13.2 K/uL (1.8-8.0); Eosinophils % 0.1 % (0-4.4); Hematocrit 27.1 % (39.6-49.0); Hemoglobin 9.4 g/dL (13.6-17.9); Lymphocytes % 6.7 % (15.3-44.8); MCH 31.2 pg (27.0-35.0); MCHC 34.7 g/dL (32.0-36.0); MPV 6.4 fL (7.6-11.3); Monocytes % 9.3 % (3.3-12.3); Neutrophils % 83.9 % (41.7-73.7); Nucleated Red Blood Cells % 0.1 % (0-0); Platelets 695 thou/uL (152-406); RBC Red Blood Cell Count 3.01 M/uL (4.33-5.43)
[2024-12-22 07:10] LABS: Albumin 1.9 g/dL (3.4-5.0); Albumin/Globulin Ratio 0.4 (1.1-1.8); Bilirubin Total 0.4 mg/dL (0.2-1.0); Globulin 4.7 g/dL (2.3-3.5); Protein, Total 6.6 g/dL (6.4-8.2)
[2024-12-22 08:08] LABS: Thyroid Stimulating Hormone 0.705 uIU/mL (0.358-3.740)
--- NOTE | 2024-12-22 13:35 | P.PN ---
Date of Service: 12/22/24 Subjective: No acute events overnight Slowly improving Weaning 02 ROS: 10 point ROS as noted above, otherwise negative Physical exam GEN: Alert, oriented, NAD HEENT: Normal conjunctiva, sclera anicteric CV: Regular rate and rhythm, no edema Pulm: Nonlabored respirations on nasal cannula 2 L ABD: Soft, nontender, nondistended MSK: No joint tenderness Integumentary: No rashes Neuro: Normal speech, normal affect Vitals reviewed Assessment: Right pneumonia-recent influenza Multiple pulmonary nodules-more on the right Hyponatremia Hypokalemia HTN HLD Tobacco use disorder Plan: Right pneumonia-recent influenza Multiple pulmonary nodules-more on the right Continue antibiotics with rocephin and zithromax Blood cultures obtained in ED-no growth in 24 hours on blood cultures, lactate 0.8 Pulmonology consulted, nodules concerning for possible metastasis Initial plan was to have CT-guided biopsy Radiology performed repeat CT prior to biopsy and some more infectious findings Biopsy was abandoned, plan for further medical management of suspected pneumonia, will need repeat CT scan and biopsy at a later date if indicated Improving with Rocephin/Zithromax, sputum grew Staph aureus Continue to wean O2 and monitor labs Hyponatremia Hypokalemia 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 Events of the last 24 hours have been noted. Case discussed with STACI. I performed a substantial part of the MDM during this patient's care today. I personally made or approved the documented management plan and acknowledge its risk of complications. I agree with the findings and documentation provided in the STACI's notes Addressed with radiology plan of care. They want a repeat the CT scan prior to doing fine-needle aspiration of the nodule which are posteriorly located. Will going go ahead and repeat the images and make a decision on doing the biopsy at that time. Will also extend the images to include abdomen pelvis to see if there is metastasis to other organs which may be easier to biopsy. At this time, continue with treating the pneumonic process. Appreciate radiology input in this patient's care. <Aneudy Beasley - Last Filed: 12/23/24 00:13>
[2024-12-22 16:26] VITALS: BMI 19.0
[2024-12-23 04:40] VITALS: O2SAT 92
[2024-12-23 07:03] LABS: Absolute Lymphocytes (CBC) 1.1 K/uL (0.7-4.9); Absolute Monocytes 1.4 K/uL (0.1-1.3); Absolute Neutrophil 10.1 K/uL (1.8-8.0); Basophils % 0.1 % (0-1.3); Eosinophils % 0.1 % (0-4.4); Hematocrit 27.1 % (39.6-49.0); Hemoglobin 9.3 g/dL (13.6-17.9); Lymphocytes % 8.5 % (15.3-44.8); MCHC 34.2 g/dL (32.0-36.0); MCV 90.5 fL (80-100); MPV 6.3 fL (7.6-11.3); Monocytes % 11.5 % (3.3-12.3); Neutrophils % 79.8 % (41.7-73.7); Platelets 691 thou/uL (152-406); Red Cell Distribution Width 13.3 % (12.1-15.2)
[2024-12-23 07:24] LABS: Albumin 1.8 g/dL (3.4-5.0); Albumin/Globulin Ratio 0.4 (1.1-1.8); Anion Gap 9.7 mEq/L (5.0-15.0); Bilirubin Total 0.4 mg/dL (0.2-1.0); Globulin 4.7 g/dL (2.3-3.5); Potassium 3.7 mEq/L (3.5-5.1); Protein, Total 6.5 g/dL (6.4-8.2)
[2024-12-23] MEDS: DOXYCYCLINE 100 MG CAP PO SCH (09:31)
[2024-12-23] MEDS: levoFLOXacin 750 MG TAB PO SCH (09:31)
--- NOTE | 2024-12-23 10:12 | P.DS ---
Admission Date: 12/18/24 Discharge Date: 12/23/24 Disposition: ROUTINE DISCHARGE Discharge Condition: FAIR Brief History of Present Illness: Patient is 64 years of age admitted with bilateral pulmonary masses and fever Hospital Course: Patient is 64 years of age admitted with shortness of breath and weakness he was diagnosed with fluid treated with Tamiflu came in here with fever had bilateral pulmonary nodules and is a heavy active smoker history of hypertension no prior history of malignancy his white count was elevated he was admitted treated with antibiotics at the time of discharge alert oriented responsive cooperative no fever or chills vital signs all stable Possibility that this was infectious process to treat him with antibiotics for another 10 days with me as an outpatient will try and arrange for outpatient biopsy will advise him to fluid restrict due to hyponatremia Time of discharge he was alert oriented responsive cooperative vital signs all stable oxygenation satisfactory chest clear is any fever chills or chest pain white count is declined to 12.6 will be discharged home on levofloxacin doxycycline and prednisone Vital Signs/Physical Exam: Temp Pulse Resp BP Pulse Ox 98.6 F 78 16 112/64 93 12/23/24 08:00 12/23/24 09:30 12/23/24 08:00 12/23/24 09:30 12/23/24 08:00 Laboratory Data at Discharge: WBC 12.60 thou/uL (4.3-10.9) H 12/23/24 06:32 Hgb 9.3 g/dL (13.6-17.9) L 12/23/24 06:32 Hct 27.1 % (39.6-49.0) L 12/23/24 06:32 Plt Count 691 thou/uL (152-406) H 12/23/24 06:32 PT 15.9 SECONDS (9.4-12.5) H 12/21/24 06:36 INR 1.52 12/21/24 06:36 APTT 28.5 SECONDS (24.3-36.9) 12/21/24 06:36 Sodium 125 mEq/L (136-145) L 12/23/24 06:32 Potassium 3.7 mEq/L (3.5-5.1) 12/23/24 06:32 BUN 6 mg/dL (7-18) L 12/23/24 06:32 Creatinine 0.52 mg/dL (0.70-1.30) L 12/23/24 06:32 Glucose 96 mg/dL (74-106) 12/23/24 06:32 Magnesium 2.1 mg/dL (1.6-2.4) 12/18/24 07:55 Total Bilirubin 0.4 mg/dL (0.2-1.0) 12/23/24 06:32 AST 36 U/L (15-37) 12/23/24 06:32 ALT 47 U/L (16-61) 12/23/24 06:32 Alkaline Phosphatase 65 U/L (45-117) 12/23/24 06:32 Home Medications: Amlodipine Besylate 10 mg PO DAILY 12/18/24 Carvedilol [Coreg] 25 mg PO BID 12/18/24 Lovastatin [Altoprev] 20 mg PO DAILY 12/18/24 lisinopriL [Prinivil*] 40 mg PO DAILY 12/18/24 Doxycycline Monohydrate 100 mg PO BID 10 Days #20 tab 12/23/24 levoFLOXacin [Levofloxacin] 500 mg PO DAILY 7 Days #7 tab 12/23/24 predniSONE [Deltasone*] 10 mg PO BID 7 Days #14 tab 12/23/24 New Medications: predniSONE [Deltasone*] 10 mg PO BID 7 Days #14 tab Doxycycline Monohydrate 100 mg PO BID 10 Days #20 tab levoFLOXacin [Levofloxacin] 500 mg PO DAILY 7 Days #7 tab Physician Discharge Instructions: Fluid restriction 1.5 l/day Diet: Regular Followup: Lito Goss MD [ACTIVE - CAN ADMIT] -
[2024-12-23 12:02] VITALS: BP 106/59; TEMP 98.9
== END 2024-12-23 15:00 | disposition home or self-care (01) | DRG 194 ==
LOC: ER 05:39 → ERHOLD 08:03 → 4TH 08:39
PROVIDERS: ADMIT Hospitalist; ATTEND Internal Medicine Sleep Medicine
DX: J18.9 Pneumonia, unspecified organism (principal); E22.2 Syndrome of inappropriate secretion of antidiuretic hormone; E87.6 Hypokalemia; E78.5 Hyperlipidemia, unspecified; I10 Essential (primary) hypertension; F17.210 Nicotine dependence, cigarettes, uncomplicated; B95.61 Methicillin susceptible Staphylococcus aureus infection as the cause of diseases classified elsewhere; R91.8 Other nonspecific abnormal finding of lung field; Z79.52 Long term (current) use of systemic steroids; Z79.02 Long term (current) use of antithrombotics/antiplatelets; Z79.899 Other long term (current) drug therapy
CPT/HCPCS: 36415; 71045; 71250; 74177; 80048; 80053; 80076; 81003; 82435; 82533; 82570; 83605; 83735; 83930; 83935; 84132; 84145; 84300; 84439; 84443; 85025; 85610; 85730; 87040; 87070; 87077; 87186; 87205; 93005; 97116; 97161; 99285; J0696; J1200; J1650; J2250; J2310; J2765; J3010; J7030; J7050; Q9967